=== PATIENT | male | born 1970 | race Caucasian/White ===

== ENCOUNTER 2018-12-09 06:58 | Inpatient (IN) ==
--- NOTE | 2018-10-24 12:12 | Anesthesiology Consultation ---
Date of Service October 24, 2018 Assessment & Plan (1) Encounter for pre-operative examination: Plan: EKG was reviewed by PCP. "Nothing further needed at this time." Chart Review Chart Review: Acceptable Risk for Surgery and Patient seen in Pre Admission Testing Teaching & Discussion Instructed NPO after midnight before surgery, except medications with 15 cc of water. Medication instructions provided according to the PAT guidelines. History Surgery Operation Date: 12/09/18 07:00 Proposed Procedures p Left Total Knee Arthroplasty - Eyal Mg MD Height/Weight Height: 6 ft 4 in Weight: 196 kg Allergies Allergy/AdvReac Type Severity Reaction Status Date / Time lisinopril Allergy Mild lip swelled Verified 10/24/18 10:50 Penicillins Allergy Unknown unsure as Verified 10/24/18 10:50 a child Medications Home Medications Medication Instructions Recorded Confirmed Last Taken albuterol sulfate 2.5 mg INHALATION QID PRN 10/24/18 10/24/18 Unknown albuterol sulfate [Ventolin HFA] 2 puff INHALATION QID PRN 10/24/18 10/24/18 Unknown apixaban [Eliquis] 5 mg PO BID 10/24/18 10/24/18 Unknown atorvastatin 40 mg PO QAM 10/24/18 10/24/18 Unknown duloxetine 30 mg PO HS 10/24/18 10/24/18 Unknown fluticasone [Flonase Allergy 2 spray INTRANASAL DAILY 10/24/18 10/24/18 Unknown Relief] fluticasone-vilanterol [Breo 1 inh INHALATION QAM 10/24/18 10/24/18 Unknown Ellipta] furosemide 20 mg PO QAM 10/24/18 10/24/18 Unknown hydrochlorothiazide 25 mg PO BID 10/24/18 10/24/18 Unknown hydrocodone-acetaminophen 1 tab PO Q6H PRN 10/24/18 10/24/18 Unknown ipratropium-albuterol 3 ml INHALATION QID PRN 10/24/18 10/24/18 Unknown levothyroxine 200 mcg PO QAM 10/24/18 10/24/18 Unknown metoprolol succinate 100 mg PO QAM 10/24/18 10/24/18 Unknown montelukast [Singulair] 10 mg PO QAM 10/24/18 10/24/18 Unknown potassium chloride 20 meq PO TID 10/24/18 10/24/18 Unknown ranitidine HCl 150 mg PO BID 10/24/18 10/24/18 Unknown Past Medical History Medical History Asthma Daily Breo, using albuterol rescue ~ once/wk GERD (gastroesophageal reflux disease) Hx of stroke without residual deficits 2016 - was treated at [facility] and then transferred to [facility]. no residual deficits aside from some word searching Hyperlipidemia Hypertension Hypothyroidism had iodine radiation treatment Osteoarthritis PONV (postoperative nausea and vomiting) Sleep apnea cpap Past Surgical History Surgical History History of arthroscopy R/L knee x 2 History of arthroscopy of shoulder left History of back surgery fracture back and has cage and hardware History of carpal tunnel surgery both hands and left elbow release of nerve History of endoscopic sinus surgery History of loop recorder placed 07/23/17 after CVA loooking for arrhythmia , [employer] History of tonsillectomy Past Anesthesia History No Hx of Anesthesia Complications (other than PONV, relieved with Zofran) and No Family Hx of Anesthesia Complications History of PONV Yes Motion Sickness Screening History of Motion Sickness: No Social History Smoking Status: Never smoker Do You Dip or Chew Tobacco: No Hx Alcohol Use: No Hx Substance Use: No substance use type: does not use Exercise / Class Metabolic Activity III < 4 Walking/Shop/Light housework (+SOB, no CP with stairs 2/2 knee pain/ deconditioning) Review of Systems Pt denies any recent chest pain, shortness of breath, palpitations, cough, fever or URI. Physical Exam Vital Signs BP: 153/97 (pt to f/u with PCP) P: 75bpm SPO2: 97% RA T: 98.1 F R: 18 ENMT Mouth: no dental restorations, no chipped teeth and no loose teeth Thyromental Distance: > or= 3.5 Finger Breadths (4) Mallampati Class: II Neck + short neck, + thick neck and + facial hair (short ); neck extension not limited Respiratory normal respiratory effort Auscultation: + crackles (soft end expiratory in lung bases B/L) Cardiovascular Rate/Rhythm: regular rate and regular rhythm Heart Sounds: no murmur Vessels: no carotid bruit Testing Electrocardiogram Date: 10/24/18 Findings: + NSR @ (63) SR with 1st degree AV block. Inferior infarct, age undetermined. Chest X-Ray Date: 10/24/18 Findings: + NAD Echocardiogram Date: 07/23/17 EF: 45-50% Normal left ventricular size, overall borderline low left ventricular ejection fraction. There is no left atrial appendage mass or thrombus. The right ventricular systolic function is qualitatively normal. Mild MR and mild TR. Laboratory Results 10/24/18 12:32 10/24/18 12:32 Blood Type O Negative 10/24/18 12:32 Antibody Screen NEGATIVE 10/24/18 12:32 PT 10.0 Seconds (9.0-12.0) 10/24/18 12:32 INR 1.0 (0.9-1.1) 10/24/18 12:32 APTT 32.4 Seconds (21.0-31.0) H 10/24/18 12:32
--- NOTE | 2018-10-24 12:27 | PAT Medication Instructions ---
Medication Instructions Date of Service October 24, 2018 Home Medications albuterol sulfate 2.5 mg INHALATION QID PRN apixaban [Eliquis] 5 mg PO BID atorvastatin 40 mg PO QAM duloxetine 30 mg PO HS fluticasone [Flonase Allergy 2 spray INTRANASAL DAILY fluticasone-vilanterol [Breo Ellipta] 1 inh INHALATION QAM furosemide 20 mg PO QAM hydrochlorothiazide 25 mg PO BID hydrocodone-acetaminophen 1 tab PO Q6H PRN ipratropium-albuterol 3 ml INHALATION QID PRN levothyroxine 200 mcg PO QAM metoprolol succinate 100 mg PO QAM montelukast [Singulair] 10 mg PO QAM potassium chloride 20 meq PO TID ranitidine HCl 150 mg PO BID ASK your prescriber and surgeon apixaban [Eliquis] 5 mg PO BID *MUST BE HELD AT LEAST 72 HOURS PRIOR TO SURGERY FOR SPINAL ANESTHESIA* DO NOT take the morning of surgery furosemide 20 mg PO QAM hydrochlorothiazide 25 mg PO BID montelukast [Singulair] 10 mg PO QAM potassium chloride 20 meq PO TID Take morning of surgery With a small sip of water, OTHERWISE NOTHING TO EAT OR DRINK AFTER MIDNIGHT: albuterol sulfate 2.5 mg INHALATION QID PRN (if needed, and bring with you to the hospital) atorvastatin 40 mg PO QAM fluticasone [Flonase Allergy] 2 spray INTRANASAL DAILY fluticasone-vilanterol [Breo Ellipta] 1 inh INHALATION QAM hydrocodone-acetaminophen 1 tab PO Q6H PRN (if needed) ipratropium-albuterol 3 ml INHALATION QID PRN (if needed) levothyroxine 200 mcg PO QAM metoprolol succinate 100 mg PO QAM ranitidine HCl 150 mg PO BID Take evening before surgery albuterol sulfate 2.5 mg INHALATION QID PRN (if needed) duloxetine 30 mg PO HS hydrochlorothiazide 25 mg PO BID hydrocodone-acetaminophen 1 tab PO Q6H PRN (if needed) ipratropium-albuterol 3 ml INHALATION QID PRN (if needed) potassium chloride 20 meq PO TID ranitidine HCl 150 mg PO BID Other Notes If you have any questions please call us at [phone] or [phone] or [phone] or [phone]
--- NOTE | 2018-10-24 12:51 | XRay Report ---
XR chest Pre-admission PA/Lat CLINICAL HISTORY: 48 years-old Male presenting with preoperative evaluation. TECHNIQUE: PA and lateral views of the chest were obtained. COMPARISON: None. FINDINGS: Cardiomediastinal silhouette normal. shroudman projects over the left heart. Lungs and pleural s paces clear. Osseous structures normal. Upper abdomen normal. IMPRESSION: 1. No acute cardiopulmonary disease. Electronically signed by: Kamron Hogue M.D. 10/24/2018 12:50 PM
[2018-10-24 14:13] LABS: Basophils # (auto) 0.07 K/uL (0-0.2); Basophils % (auto) 1.1 %; Eosinophils # (auto) 0.57 K/uL (0-0.5); Eosinophils % (auto) 8.9 %; Hematocrit (blood only) 41.9 % (42-52); Hemoglobin 13.6 g/dL (14.0-18.0); Immature Granulocytes # (auto) 0.02 K/uL (0.00-0.02); Immature Granulocytes % (auto) 0.3 %; Lymphocytes # (auto) 0.84 K/uL (1.2-3.4); Lymphocytes % (auto) 13.1 %; Mean Corpuscular Hgb Conc 32.5 g/dL (32-36); Mean Corpuscular Volume 91.1 fL (80-100); Mean Platelet Volume 11.2 fL (7.4-10.4); Monocytes # (auto) 0.84 K/uL (0.11-0.59); Monocytes % (auto) 13.1 %; Neutrophils # (auto) 4.08 K/uL (1.4-6.5); Neutrophils % (auto) 63.5 %; Platelet Count 172 K/uL (130-400); RDW Coefficient of Variation 14.3 % (11.5-14.5); RDW Standard Deviation 47.5 fL (36.4-46.3); White Blood Count 6.42 K/uL (4.8-10.8)
[2018-10-24 14:28] LABS: Partial Thromboplastin Ratio 1.2; Partial Thromboplastin Time 32.4 Seconds (21.0-31.0)
[2018-10-24 14:34] LABS: BUN Creatinine Ratio 12.9 (10-20); Calcium 9.3 mg/dl (8.5-10.1); Est GFR (African American) 65.5; Est GFR (Non-African American) 56.5; Potassium 3.7 mmol/L (3.5-5.1)
--- NOTE | 2018-12-04 08:41 | History and Physical Report ---
DATE OF ADMISSION: 12/09/2018 CHIEF COMPLAINT: Bilateral knee pain, left side greater than right. HISTORY OF PRESENT ILLNESS: The patient is a 48-year-old very large gentleman referred to me by my partner Dr. Ellis for a surgical treatment of his knees. He has a long history of bilateral knee pain and discomfort, describes it has just gotten worse over time. He has been through extensive conservative treatment, most specifically oral medicines and injections. The injections helped, but only for a very short period of time. He has become more disabled by his knee pain. He has got pain all the time. He has trouble walking more than 2 blocks. He avoids activities due to his knee pain. 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 The patient has had both of his knees scoped in the past which provided some temporary relief. He also cannot take NSAIDs now due to his Eliquis use. PAST MEDICAL HISTORY: 1. Hypertension. 2. Sleep apnea, on CPAP machine. 3. History of mini stroke, on Eliquis. 4. Gastroesophageal reflux disease. 5. Morbid obesity with a BMI of 52.6. PAST SURGICAL HISTORY: Previous surgeries include: 1. Bilateral knee scopes. 2. Sinus surgery. 3. Shoulder surgery. 4. Carpal tunnel release. 5. Tonsillectomy. ALLERGIES: 1. PENICILLIN. REACTIONS UNKNOWN. 2. LISINOPRIL, WHICH CAUSES ANGIOEDEMA. CURRENT MEDICINES: Include: 1. Eliquis for mini strokes without sequelae. 2. Hydrocodone for pain. 3. Levoxyl 200 mcg a day. 4. Potassium chloride 10 mEq twice a day. 5. Atorvastatin 40 mg a day. 6. Ranitidine 150 mg a day. 7. Singulair once a day. 8. Advair 2 puffs twice a day. 9. Ventolin inhaler 2 puffs every 4-6 hours. 10. Albuterol nebulizer as needed. 11. Eliquis 5 mg twice a day. 12. Metoprolol ER 100 mg once a day. 13. Cyclobenzaprine 5 mg 2 tablets at bedtime for muscle spasm. 14. Hydrochlorothiazide 12.5 mg 1-2 tablets as needed for swelling. 15. Furosemide 20 mg a day. 16. DuoNeb inhaler as needed. 17. Flonase allergy relief. SOCIAL HISTORY: A 48-year-old gentleman. Works as a paid EMT. Does not smoke. FAMILY HISTORY: Significant for diabetes and cerebrovascular disease and heart disease. REVIEW OF SYSTEMS: Significant for mini strokes without sequelae. He is on Eliquis. No history of DVT or PE. No known bleeding problems. OBJECTIVE GENERAL: Physical examination reveals a large statured middle-aged male. Looks to be in reasonably good health. HEENT: Benign. NECK: Supple, no lymphadenopathy. LUNGS: Clear to auscultation. HEART: Regular rate and rhythm. ABDOMEN: Soft, nontender, nondistended. EXTREMITIES: Grossly neurovascularly intact except as follows: Examination of both knees reveals the patient walks with a waddling gait. He limps a little bit more on the left side than the right. Examination of the left knee reveals varus alignment. Very large gentleman with a moderate soft tissue envelope. He has had chronic edema distally. No areas of open sores. His range of motion is 10 degrees short of full extension to 105 degrees of flexion. There is no instability. No pain with hip motion. Examination of the right knee reveals fairly neutral alignment to his knee. Large soft tissue envelope. Mild distal edema. Range of motion is 5-125. No instability. X-RAYS: X-rays of both knees reveal advanced bilateral knee DJD, left side quite a bit worse than the right. He has got complete loss of his medial joint space on the left side. He has got subchondral sclerosis. He is starting to wear down his medial tibial plateau. His right knee is a little bit more lateral compartment arthritis. ASSESSMENT: A 48-year-old gentleman with a history of some transient ischemic attacks in the past, on Eliquis, also history of bilateral knee scopes with morbid obesity, very large stature and advanced knee arthritis, left side worse than the right. He has failed conservative treatment. He would like to proceed with knee replacement. PLAN: We are going to proceed with a left knee replacement. I think it is only appropriate to do one knee at a time, he is a very large gentleman. The risks of cemented left knee replacement were explained to the patient including but not limited to DVT, PE, , infection, neurological injury, vascular injury, bleeding problem, pain, limited range of motion, stiffness, failure to relieve symptoms, incomplete relief of symptoms, need for further surgery in future, fracture, leg length inequality, nerve palsy, need for revision surgery. The patient understands and desires to proceed. Informed consent was obtained. He knows to stop his Eliquis 3 days preop. He will take the metoprolol the morning of surgery. We will likely use a stem in his tibia due to his large size and his deformity. We will likely put some antibiotics in the cement as well.
[~2018-12-09 06:58] MED LIST: ACETAMINOPHEN 500 MG TAB PO SCH; BUPIVACAINE 0.5 % 5 MG/1 ML PF 10ML VIAL ONE; BUPIVACAINE LIPOSOME/PF 266 MG, BUPIVACAINE/EPINEPHRINE 50 ML, SODIUM CHLORIDE 0.9% 30 ... INFIL SCH; CEFAZOLIN 3000MG 65 ML IV SCH; EPINEPHrine INJ 1 MG/ML AMP ONE; FAMOTIDINE 20 MG TAB PO SCH; GABAPENTIN 300 MG x 3 PO SCH; LR 500ML BOLUS, THEN 15ML/HR IV SCH; LR 60ML/HR IV SCH; METOCLOPRAMIDE HCL 10 MG TABLET PO SCH; ROPIVACAINE 0.5% 5 MG/ML 30 ML VIAL ONE; SCOPOLAMINE 1.5 MG TDSY TD SCH; TRANEXAMIC ACID 1,000 MG **IV Intra-op IV SCH
[2018-12-09] MEDS ORDERED: MIDAZOLAM HCL 1 MG/ML 2ML VIAL ONE ×3 (07:38→09:50)
[2018-12-09] MEDS ORDERED: BUPIVACAINE LIPOSOME 1.3% 266 MG/20 ML VIAL ONE (08:29)
[2018-12-09] MEDS ORDERED: BACITRACIN INJ 50,000 UNIT VIAL ONE (08:29)
[2018-12-09] MEDS ORDERED: BUPIVACAINE 0.25% 30 ML VIAL ONE (08:29)
[2018-12-09] MEDS ORDERED: SODIUM CHLORIDE 0.9% PF 50 ML VIAL ONE (08:29)
--- NOTE | 2018-12-09 08:29 | History & Physical Bridge Note ---
Date of Service December 09, 2018 History & Physical Bridge Note I have examined the patient, reviewed the History & Physical and in the interval since the performance of the History & Physical I have noted the following changes of clinical significance: no changes noted
[2018-12-09] MEDS ORDERED: VANCOMYCIN HCL 1000MG/20ML VIAL ONE (09:19)
[2018-12-09] MEDS ORDERED: PHENYLEPHRINE 100MCG/ML 5ML SYR ONE (09:33)
[2018-12-09] MEDS ORDERED: PROPOFOL IV EMULSION 10 MG/ML 20 ML VIAL IV ONE ×2 (09:33→10:30)
[2018-12-09] MEDS ORDERED: LIDOCAINE HCL 2% 2 ML VIAL/AMP(20MG/ML) INFIL ONE (09:33)
[2018-12-09] MEDS ORDERED: fentaNYL citrate 100 MCG/2 ML VIAL ONE (10:32)
[2018-12-09] MEDS ORDERED: ONDANSETRON INJ 2 MG/ML 2 ML VIAL ONE (10:47)
[2018-12-09] MEDS ORDERED: ePHEDrine sulfate 50 MG/ML AMP IV PRN (11:06)
[2018-12-09] MEDS ORDERED: ATROPINE SULFATE 0.1 MG/ML 10ML SYR IV PRN (11:06)
--- NOTE | 2018-12-09 11:09 | Post Operative Brief Note ---
Immediate Post Op Note v1 Date of Surgery December 09, 2018 Pre & Post Diagnosis Operation Date: 12/09/18 08:50 Pre-Op Diagnosis: Left Knee Advanced Degenerative Joint Disease Post-Op Diagnosis: Left Knee Advanced Degenerative Joint Disease Procedure Operation Date: 12/09/18 08:50 Actual Procedures p Left Total Knee Arthroplasty(Left) - Eyal Mg MD Surgeon Eyal Mg MD [facility] Josefa, PAC Estimated Blood Loss 50 Findings Consistent with Post-Op Diagnosis Fluids 1300 cc Specimens Left Knee Drains Mendez Catheter (A 16 Khmer mendez catheter was inserted by DUANE Casanova, without difficulty, clear yellow urine obtained, output to be monitored by Anesthesia.) Anesthesia Type Spinal MAC Complications none Disposition Accompanied Patient To Recovery: No Disposition: Recovery Room
--- NOTE | 2018-12-09 11:53 | XRay Report ---
XR knee LT 2V routine CLINICAL HISTORY: 48 years-old Male presenting with Surgical Post Op. TECHNIQUE: Frontal and crosstable lateral views of the left knee were obtained. COMPARISON: 10/24/2018. FINDINGS: There has been interval total left knee arthroplasty with patellar resurfacing. Expected intra-articu lar and soft tissue emphysema. Overlying skin yaakov. Surrounding soft tissue swelling. No periprost hetic fracture. No malalignment. IMPRESSION: Expected postsurgical appearance status post total left knee arthroplasty with patellar resurfacing. Electronically signed by: Kamron Hogue M.D. 12/09/2018 11:51 AM
--- NOTE | 2018-12-09 11:55 | Anesthesiology Progress Note ---
Date of Service December 09, 2018 Anesthesia Post Procedure Vital Signs Vital Signs: Temp Pulse Pulse Resp BP Pulse Ox 12/09/18 11:54 36.9 C 63 21 164/88 H 95 12/09/18 11:45 36.7 C 66 19 155/84 H 95 12/09/18 11:35 72 19 146/83 H 94 12/09/18 11:25 67 19 158/82 H 94 12/09/18 11:15 36.3 C L 76 16 138/79 97 12/09/18 08:01 37 C 73 20 150/88 H 96 Pain Intensity Left Knee: Pain Intensity: 2 Notes Mental Status: alert / awake / arousable Patient Amnestic to Procedure: Yes Nausea / Vomiting: adequately controlled Pain: adequately controlled Airway Patency, RR, SpO2: stable & adequate BP & HR: stable & adequate Hydration State: stable & adequate Neuraxial Anesthesia: was administered and sensory block is resolving Anesthetic Complications: no major complications apparent
[2018-12-09] MEDS ORDERED: OXYCODONE HCL IR 5 MG TAB (IMMEDIATE RELEASE) PO PRN (12:42)
[2018-12-09] MEDS ORDERED: ALBUTEROL 0.083% NEBU SOLN 3 ML VIAL INH PRN (12:42)
[2018-12-09] MEDS ORDERED: MAGNESIUM HYDROXIDE SUSP 30 ML UDC PO PRN (12:42)
[2018-12-09] MEDS ORDERED: TAMSULOSIN HCL 0.4 MG CAP PO PRN (12:42)
[2018-12-09] MEDS ORDERED: HYDROmorphone INJ 0.5 MG/0.5 ML SYR IV PRN (12:42)
[2018-12-09] MEDS ORDERED: ALBUT/IPRATROP 3MG/0.5MG NEB 3 ML VIAL INH PRN (12:42)
[2018-12-09] MEDS ORDERED: ALBUTEROL HFA 8 GM INHALER INH PRN ×2 (12:42→20:18)
[2018-12-09] MEDS ORDERED: ONDANSETRON INJ 2 MG/ML 2 ML VIAL IV PRN (12:42)
[2018-12-09] MEDS ORDERED: ALUMINUM/MAGNESIUM SUSP 30 ML UDC PO PRN (12:42)
[2018-12-09] MEDS ORDERED: NALOXONE HCL 0.4 MG/1 ML VIAL/CARP IV PRN (12:42)
[2018-12-09] MEDS ORDERED: BISACODYL 10 MG SUPP PR PRN (12:42)
[2018-12-09] MEDS ORDERED: METOCLOPRAMIDE HCL INJ 5 MG/ML 2 ML VIAL IV PRN (12:42)
[2018-12-09] MEDS: ACETAMINOPHEN 500 MG TAB PO SCH ×2 (14:29→21:37)
[2018-12-09] MEDS: KETOROLAC 30 MG/ML VIAL IV SCH ×2 (14:29→21:38)
[2018-12-09] MEDS: CHECK SCOPOLAMINE PATCH PLACEMENT SCH (16:48)
[2018-12-09] MEDS: SODIUM CHLORIDE 0.9% 1000ML 1,000 ML IV SCH ×2 (16:51→23:49)
[2018-12-09] MEDS: CEFAZOLIN 2000MG 2,000 MG/15 ML SYR IV SCH ×2 (16:52→23:53)
[2018-12-09] MEDS: POTASSIUM CHLORIDE 20 MEQ TABCR PO SCH ×2 (16:53→21:37)
[2018-12-09] MEDS: hydroCHLOROthiazide 25 MG TAB PO SCH (16:53)
[2018-12-09] MEDS: ASCORBIC ACID 500 MG TAB PO SCH (16:53)
[2018-12-09] MEDS: FERROUS GLUCONATE 324 MG TAB PO SCH (16:54)
[2018-12-09] MEDS ORDERED: TRANEXAMIC ACID 1,000 MG in 0.9 % SODIUM CHLORIDE 100 ML IV SCH (17:00)
[2018-12-09] MEDS ORDERED: DULOXETINE HCL 30 MG CAP PO SCH (21:00)
[2018-12-09] MEDS ORDERED: SENNA 8.6 MG TAB PO SCH (21:00)
[2018-12-09] MEDS: DOCUSATE SODIUM 100 MG CAP PO SCH (21:37)
[2018-12-09] MEDS: TAPENTADOL HCL ER 50 MG TABCR PO SCH (21:43)
[2018-12-09] MEDS: BREO ELIPTA INH SCH (23:50)
--- NOTE | 2018-12-10 00:12 | Operative Report ---
DATE OF OPERATION: 12/09/2018 SURGEON: Eyal Mg MD ACID REMOVER: DUANE Nur. PREOPERATIVE DIAGNOSIS: Left knee degenerative joint disease. POSTOPERATIVE DIAGNOSIS: Same. PROCEDURE PERFORMED: Left cemented posterior stabilized total knee arthroplasty. COMPLICATIONS: None. ESTIMATED BLOOD LOSS: 50 mL. FLUID REPLACEMENT: 1300 mL crystalloid fluid replacement. ANESTHESIA: Spinal with adductor canal block. DRAINS: None. SPECIMENS: Left knee sent for pathology. TOURNIQUET TIME: 79 minutes at 350 mmHg. OPERATIVE INDICATIONS: The patient is a 48-year-old gentleman who has had a long history of bilateral knee pain and discomfort. He has been through extensive conservative treatment in the past. He has had both of his knees scoped in the past. X-ray showed advanced bilateral knee DJD. It was affecting his quality of life and he elected to proceed with surgical treatment. OPERATIVE FINDINGS: Operative findings were advanced left knee DJD. He had extensive grade 4 changes in the medial and patellofemoral compartments. He had a varus deformity to his knee. He had a large knee joint effusion. The patient is a very large gentleman with a BMI of 52 and a weight of 196 kilograms. OPERATIVE IMPLANTS: Operative implants consisted of: 1. A Biomet Vanguard size 80 left posterior stabilized femoral component. 2. A Biomet size 83 tibial tray with a 16 x 80 mm stem with a 2.5 mm offset and a large cruciate wing. 3. A 12 mm posterior stabilized polyethylene insert. 4. A 34 x 8.5 all poly patella. OPERATIVE PROCEDURE: The patient was taken to the operating room, identified and placed on the operative table in supine position. All contact areas were appropriately padded. IV antibiotics were provided by anesthesia team. A spinal anesthetic and adductor canal block were provided in the holding area. Gama catheter was placed in sterile fashion. A left thigh tourniquet was then placed and the left lower extremity was then prepped and draped in the usual sterile fashion. The left leg was elevated and exsanguinated with Esmarch and tourniquet was placed at 350 mmHg. An anterior approach to the left knee was then performed through a longitudinal incision centered over the patella. Sharp dissection was carried through the subcutaneous tissues down to the extensor mechanism. A medial parapatellar arthrotomy incision was made. Some subperiosteal dissection was carried out medially. The fat pad was resected from beneath the patellar tendon. The lateral patellofemoral ligament was released. The patella was everted and knee was flexed. The osteophytes were taken off the distal femur. The ACL and PCL were then released from the distal femur and the tibia subluxated anteriorly. The intercondylar eminence was then removed with the use of a saw. I then entered the tibial canal. I reamed up to a size 16. Intramedullary toribio was used to cut the proximal tibia to take about 2 mm of bone from the most deficient aspect of the medial tibial plateau. The tibia was then sized to a size 83. I then prepared the tibia for a 2 mm offset stem with a size 16 x 80 stem. The large cruciate wing was used and the trial tray was assembled in place. Attention was then drawn to the femur. The distal femur was entered with a sharp drill bit. Intramedullary canal was suctioned. A left 5-degree valgus cutting guide was placed. The distal femoral cutting block was pinned in place. Distal femoral cut was made to take an additional 3 mm of bone off the distal femur. The femur was then sized to a size 80. We downsized this slightly. The AP cutting block was pinned parallel to the epicondylar axis, which was 4 degrees of external rotation. The anterior cut, anterior chamfer, posterior cut, posterior chamfer cuts were made. Box cutting guide was placed and adjusted slightly lateral and the box cut was made. The knee was flexed. The remnants of the medial and lateral menisci were excised. The osteophytes were taken off the posterior aspect of the femur. A trial femoral component was placed. I then trialed the knee and the 12 mm insert fit most appropriately. Attention was then drawn to the patella. The patella was cleaned of all soft tissues. Patellar thickness measured 25 mm in thickness and was cut down to 15. We did leave this a little thick due to his large size. The femur was sized to a size 34. The lug holes were drilled for a 34 patella. Lateral osteophyte was removed. Patellar button was placed. Knee was taken through range of motion and patella tracked nicely with no thumbs test. Attention was then drawn toward placement of permanent components. All trial components were removed. A bone plug was placed in the distal femur to limit blood loss. A double batch of Palacos G cement was mixed with an additional gram of vancomycin. A size 80 left posterior stabilized femoral component, size 83 tibial tray with a stem, and a large cruciate wing and a 12-mm posterior stabilized polyethylene insert, and a 34 x 8.5 all poly patella were then cemented in place. Knee was brought out into full extension until cement hardened. A final cement check was then performed. Pericapsular tissues were injected with a total 100 mL of a combination of 20 mL of Exparel, 30 mL of normal saline, 50 mL of 0.25% Marcaine with epinephrine. The patient did receive 1 gram of tranexamic acid. The tourniquet was then let down for a tourniquet time of 79 minutes. Hemostasis was assured using electrocautery. The extensor mechanism was then closed with a combination of #1 PDS suture and #1 Vicryl suture in [id number] fashion. Extensor mechanism was checked and found to be intact. The subcutaneous tissues were then closed with #2 Dexon suture in a buried interrupted fashion. Skin was closed with skin yaakov. Leg was then cleaned, dried and sterile dressing of Xeroform, 4 x 4's, sterile cast padding, and Ashutosh bandage were applied. The patient was then transferred to the recovery room in stable condition. The patient tolerated the procedure without complications. All needle and sponge counts were correct at the end of the operation. I attest to the content of the Intraoperative Record and any orders documented therein. Any exception s are noted below.
[2018-12-10] MEDS: CHECK SCOPOLAMINE PATCH PLACEMENT SCH (00:27)
[2018-12-10] MEDS: KETOROLAC 30 MG/ML VIAL IV SCH ×2 (02:17→09:20)
[2018-12-10 06:10] LABS: Hematocrit (blood only) 34.6 % (42-52); Hemoglobin 11.3 g/dL (14.0-18.0); Mean Corpuscular Hgb Conc 32.7 g/dL (32-36); Mean Corpuscular Volume 91.1 fL (80-100); Mean Platelet Volume 10.5 fL (7.4-10.4); Platelet Count 109 K/uL (130-400); RDW Coefficient of Variation 13.8 % (11.5-14.5); White Blood Count 6.43 K/uL (4.8-10.8)
[2018-12-10] MEDS: SODIUM CHLORIDE 0.9% 1000ML 1,000 ML IV SCH (06:23)
[2018-12-10] MEDS: ACETAMINOPHEN 500 MG TAB PO SCH (06:26)
[2018-12-10] MEDS ORDERED: LEVOTHYROXINE SODIUM 100 MCG TABLET PO SCH (06:30)
[2018-12-10] MEDS ORDERED: LEVOTHYROXINE SODIUM 125 MCG TABLET PO SCH (06:30)
[2018-12-10 06:35] LABS: BUN Creatinine Ratio 17.3 (10-20); Calcium 7.7 mg/dl (8.5-10.1); Creatinine Clr Calc Pharmacy 99.9 ml/min; Est GFR (African American) 55.6; Potassium 3.6 mmol/L (3.5-5.1)
[2018-12-10] MEDS ORDERED: FLUTICASONE PROPIONATE NA SPR 16 GM BTL SCH (09:00)
[2018-12-10] MEDS ORDERED: MULTIVITAMIN TAB PO SCH (09:00)
[2018-12-10] MEDS ORDERED: FUROSEMIDE 20 MG TAB PO SCH (09:00)
[2018-12-10] MEDS ORDERED: ATORVASTATIN 40 MG TAB PO SCH (09:00)
[2018-12-10] MEDS ORDERED: METOPROLOL SUCC 50MG EXT REL TAB PO SCH (09:00)
[2018-12-10] MEDS ORDERED: MONTELUKAST SODIUM 10 MG TABLET PO SCH (09:00)
[2018-12-10] MEDS: FERROUS GLUCONATE 324 MG TAB PO SCH (09:06)
[2018-12-10] MEDS: BREO ELIPTA INH SCH (09:17)
[2018-12-10] MEDS: DOCUSATE SODIUM 100 MG CAP PO SCH (09:18)
[2018-12-10] MEDS: POTASSIUM CHLORIDE 20 MEQ TABCR PO SCH (09:18)
[2018-12-10] MEDS: hydroCHLOROthiazide 25 MG TAB PO SCH (09:19)
[2018-12-10] MEDS: ASCORBIC ACID 500 MG TAB PO SCH (09:19)
[2018-12-10] MEDS: TAPENTADOL HCL ER 50 MG TABCR PO SCH (09:27)
--- NOTE | 2018-12-10 10:45 | Progress Note ---
DATE: 12/10/2018 ORTHOPEDIC PROGRESS NOTE SUBJECTIVE: The patient is a 48-year-old male postop day #1 status post left total knee arthroplasty, doing well. He is sitting in his chair next to his bed in his room with his present. He has had a good night and good appetite this morning; thereafter, a very good start. OBJECTIVE: VITAL SIGNS: His temperature is 36.6, blood pressure 114/76. Other vitals are stable. H and H are 11.3 and 34.6. GENERAL APPEARANCE: At this point, he is alert and oriented, pleasant. He is sitting in his chair. EXTREMITIES: His dressing is intact. His knee is bent to about 90 degrees. No calf discomfort. Neurovascular status appears to be intact. IMAGING: X-rays reviewed from postoperatively yesterday show a well-placed left total knee arthroplasty with a long stem on the tibial tray. ASSESSMENT: A 48-year-old male, postoperative day #1 left total knee arthroplasty, doing extremely well and anxious to go home to avoid the snowstorm tomorrow in our community. PLAN: 1. We will continue with DVT prophylaxis including thigh-high CAROLEE stockings, aspirin twice a day. 2. He will weightbear as tolerated per total knee protocol. 3. Pain control with post-discharge pain medications. 4. He will follow back up in the office in 10-14 days to remove his skin yaakov. He is set up for home health also.
[2018-12-10] MEDS ORDERED: APIXABAN 2.5 MG TAB PO SCH (11:11)
--- NOTE | 2018-12-10 11:32 | Anesthesiology Progress Note ---
Date of Service December 10, 2018 Anesthesia Post Procedure Vital Signs Vital Signs: Temp Pulse Pulse Resp BP BP Pulse Ox 12/10/18 08:41 36.6 C 73 18 114/76 92 12/10/18 03:12 36.7 C 68 16 113/71 95 12/09/18 23:06 37.2 C 69 17 118/72 96 12/09/18 19:04 36.7 C 65 16 133/72 99 12/09/18 15:23 36.4 C L 59 L 18 147/71 H 94 12/09/18 14:35 60 14 169/74 H 96 12/09/18 13:33 66 18 133/78 97 12/09/18 12:57 69 20 156/92 H 96 12/09/18 12:30 36.7 C 72 19 167/75 H 94 12/09/18 12:08 36.9 C 63 20 146/79 H 94 12/09/18 11:54 36.9 C 63 21 164/88 H 95 12/09/18 11:45 36.7 C 66 19 155/84 H 95 12/09/18 11:35 72 19 146/83 H 94 Pain Intensity Left Knee: Pain Intensity: 2 Notes Mental Status: alert / awake / arousable and participated in evaluation Patient Amnestic to Procedure: Yes Nausea / Vomiting: adequately controlled Pain: adequately controlled Airway Patency, RR, SpO2: stable & adequate BP & HR: stable & adequate Hydration State: stable & adequate Anesthetic Complications: no major complications apparent
--- NOTE | 2018-12-14 06:47 | Discharge Summary ---
Date of Service December 20, 2018 Discharge Data Consultations 12/09/18 12:42 Consult Case Management - Discharge Planning Routine Procedures Performed Operation Date: 12/09/18 08:50 Actual Procedures p Left Total Knee Arthroplasty(Left) - Eyal Mg MD
--- NOTE | 2018-12-18 22:39 | Discharge Summary ---
ADMITTING PHYSICIAN AND SURGEON: Eyal Mg MD ADMITTING DIAGNOSIS: Left knee degenerative joint disease. SURGERY PERFORMED: Left total knee arthroplasty. SECONDARY DIAGNOSES: Hypertension, sleep apnea, history of mini stroke, gastroesophageal reflux disease and morbid obesity. CONSULTS: None obtained. HISTORY AND PHYSICAL EXAMINATION: Well documented in the patient's chart. HOSPITAL COURSE: The patient was admitted on 12/09/2018, underwent total knee arthroplasty, tolerated the procedure well with no complications. He was transferred to the PACU postoperatively and later to the Orthopedic for further care. He was given Ancef for antibiotic prophylaxis, CAROLEE stockings and sequential compression devices and his home Eliquis for deep venous thrombosis prophylaxis. Hemoglobin, hematocrit and vital signs were monitored during his hospital stay and remained stable, did not require any blood transfusions. There were no complications. By postoperative day 1, he was tolerating regular diet, pain was controlled with oral pain medicine. He was participating in physical therapy. On postoperative day 1, he was discharged home and set up with home health services. He was given printed discharge instructions including new prescriptions for extra strength Tylenol, iron supplement and oxycodone. Continue his home medicines with the exception of hydrocodone/acetaminophen, which he was told to stop. Continue physical therapy, weightbearing as tolerated, CAROLEE stockings and follow up approximately 2 weeks postoperatively or sooner if any problems or concerns.
== END 2018-12-10 13:00 | disposition home health service (06) | DRG 470 ==
LOC: ASU 06:58 → 3E 12:41

== ENCOUNTER 2019-11-28 09:46 | Observation (INO) ==
--- NOTE | 2019-11-15 13:27 | PAT Medication Instructions ---
Medication Instructions Date of Service November 15, 2019 Home Medications Eliquis 5 mg PO BID albuterol sulfate 2.5 mg INHALATION QID PRN albuterol sulfate [Ventolin HFA] 2 puff INHALATION QID PRN atorvastatin 40 mg PO QAM duloxetine 30 mg PO HS fluticasone propionate [Flonase Allergy Relief] 2 spray INTRANASAL UD PRN levothyroxine 212.5 mcg PO QAM metoprolol succinate 100 mg PO QAM montelukast [Singulair] 10 mg PO QAM potassium chloride 20 meq PO QID amlodipine 2.5 mg PO QAM omeprazole 20 mg PO QAM ASK your prescriber and surgeon Eliquis 5 mg PO BID (in order for spinal anesthesia, Eliquis needs to be stopped 3 days/72 hours before surgery. Please check if okay with doctor that prescribes this to you) DO NOT take the morning of surgery montelukast [Singulair] 10 mg PO QAM potassium chloride 20 meq PO QID Take morning of surgery With a small sip of water, OTHERWISE NOTHING TO EAT OR DRINK AFTER MIDNIGHT: albuterol sulfate 2.5 mg INHALATION QID PRN (if needed) albuterol sulfate [Ventolin HFA] 2 puff INHALATION QID PRN (if needed) atorvastatin 40 mg PO QAM fluticasone propionate [Flonase Allergy Relief] 2 spray INTRANASAL UD PRN (if needed) levothyroxine 212.5 mcg PO QAM metoprolol succinate 100 mg PO QAM amlodipine 2.5 mg PO QAM omeprazole 20 mg PO QAM Take evening before surgery albuterol sulfate 2.5 mg INHALATION QID PRN (if needed) albuterol sulfate [Ventolin HFA] 2 puff INHALATION QID PRN (if needed) duloxetine 30 mg PO HS fluticasone propionate [Flonase Allergy Relief] 2 spray INTRANASAL UD PRN (if needed) potassium chloride 20 meq PO QID Other Notes If you have any questions please call us at [phone] or [phone] or [phone] or [phone]
--- NOTE | 2019-11-16 11:53 | Anesthesiology Consultation ---
Date of Service November 16, 2019 Assessment & Plan (1) Encounter for pre-operative examination: Chart Review Chart Review: Acceptable Risk for Surgery and Patient seen in Pre Admission Testing Left TKA done 12/09/18= done under spinal anesthesia. Three attempts - done between L3-4 Teaching & Discussion Pre-Anesthesia Teaching/Discussion Notes: Instructed NPO after midnight before surgery,except medications with 15 cc of water. Medication instructions provided according to the PAT guidelines. History Surgery Operation Date: 12/15/19 07:00 Proposed Procedures p Right Total Knee Arthroplasty - Eyal Mg MD Height/Weight Height: 6 ft 4 in Weight: 199.3 kg Allergies Allergy/AdvReac Type Severity Reaction Status Date / Time lisinopril Allergy Unknown lip swelled Verified 11/16/19 10:04 Penicillins Allergy Unknown unsure as Verified 11/16/19 10:04 a child Medications Home Medications Medication Instructions Recorded Confirmed Last Taken Eliquis 5 mg PO BID 10/24/18 11/16/19 12/05/18 15:00 albuterol sulfate 2.5 mg INHALATION QID PRN 10/24/18 11/16/19 Unknown albuterol sulfate [Ventolin HFA] 2 puff INHALATION QID PRN 10/24/18 11/16/19 Unknown atorvastatin 40 mg PO QAM 10/24/18 11/16/19 12/08/18 08:00 duloxetine 30 mg PO HS 10/24/18 11/16/19 12/08/18 21:00 fluticasone propionate [Flonase 2 spray INTRANASAL UD PRN 10/24/18 11/16/19 Unknown Allergy Relief] levothyroxine 212.5 mcg PO QAM 10/24/18 11/16/19 12/09/18 05:30 metoprolol succinate 100 mg PO QAM 10/24/18 11/16/19 12/09/18 06:00 montelukast [Singulair] 10 mg PO QAM 10/24/18 11/16/19 12/08/18 08:00 potassium chloride 20 meq PO QID 10/24/18 11/16/19 12/08/18 21:00 amlodipine 2.5 mg PO QAM 11/10/19 11/16/19 Unknown omeprazole 20 mg PO QAM 01/31/20 02/06/20 Unknown Past Medical History Medical History (Updated 11/16/19 @ 15:41 by Mckenzie Ocampo PA-C) Asthma Stable and controlled - occ wheezing with weather changes CKD (chronic kidney disease) Stable - was taken off Lasix and HCTZ - slowly improving GERD (gastroesophageal reflux disease) Well controlled and stable with OTC Omeprazole Hx of stroke without residual deficits 2015 - denies residual effects- no longer needs to follow with neuro- follows only with PCP Hyperlipidemia Hypertension Hypothyroidism s/p iodine radiation treatment secondary to hyperthyroidism Leg edema Mild/stable since d/c of diuretics Morbid obesity Osteoarthritis Right knee DJD Sleep apnea no CPAP (non-compliant, "cannot tolerate") Exercise / Class Metabolic Activity II 4-5 Yardwork/Stairs/Walk up hill (no chest pain or SOB with one flight of stairs- goes slow ) Past Surgical History Surgical History Family history of reaction to anesthesia Mother/father "slow to wake"- no prolonged intubation or ICU stay History of arthroscopy R/L knee x 2 History of arthroscopy of shoulder left History of back surgery fracture back and has cage and hardware History of carpal tunnel surgery both hands and left elbow release of nerve History of endoscopic sinus surgery History of left knee replacement Left TKA: 12/09/18: SAB x 3 attempts + PNB at [facility] History of loop recorder placed 07/23/17 after CVA loooking for arrhythmia , Ceregen[employer]- still in place History of tonsillectomy PONV (postoperative nausea and vomiting) Past Anesthesia History No issues with anesthesia with exception to PONV Family hx of slow to wake- no prolonged intubation or ICU stay- just groggy afterwards (mother and father) History of PONV History of PONV and Hx of Motion Sickness Social History Smoking Status: Never smoker Do You Dip or Chew Tobacco: No Hx Alcohol Use: No Hx Substance Use: No substance use type: does not use Review of Systems Mild cough and wheezing with asthma aggrevation. Reflux - well controlled and stable CVA- 2017- no current issues DEBORA - no treated Patient denies chest pain, shortness of breath, dyspnea on exertion, pa lpitations. No hx of seizures, ID. No hx of blood clots or blood transfusions No recent steroid use Physical Exam Vital Signs VITALS BP 140/69 P 62 bpm TEMP 97.7 SP02 95% RESP 16 Constitutional no acute distress ENMT Mouth: no TMJ clicking, no chipped teeth and no loose teeth Thyromental Distance: > or= 3.5 Finger Breadths (4.0) Mallampati Class: II Missing molar bottom right and top left Neck + short neck and + thick neck; neck extension not limited Respiratory normal respiratory effort; no respiratory distress Auscultation: lungs clear to auscultation bilaterally and + diminished lung sounds (mild- throughout ); no wheezes Cardiovascular Rate/Rhythm: regular rate and regular rhythm Heart Sounds: no murmur Vessels: no carotid bruit Extremities: + edema (1+ (mild)) Musculoskeletal Spine: no pain with cervical ROM Neurologic moves all extremities Psychiatric Orientation: alert Testing Laboratory Results 11/16/19 11:58 11/16/19 11:58 PT 10.3 Seconds (9.0-12.0) 11/16/19 11:58 INR 1.0 (0.9-1.1) 11/16/19 11:58 APTT 33.6 Seconds (21.0-31.0) H 11/16/19 11:58 Blood Type O Negative 11/16/19 11:58 Antibody Screen NEGATIVE 11/16/19 11:58 Electrocardiogram Date: 11/16/19 Sinus rhythm with first-degree AV block at 64 bpm. When compared to EKG from 10/24/2018 T wave inversion no longer evident in inferior leads. Chest X-Ray Date: 11/16/19 Findings: + NAD Loop recorder device projects over left chest. Echocardiogram Date: 07/23/17 EF: 45-50% Normal left ventricular size, overall borderline low left ventricular ejection fraction. There is no left atrial appendage mass or thrombus. The right ventricular systolic function is qualitatively normal. Mild MR and mild TR.
[2019-11-16 12:38] LABS: Basophils # (auto) 0.05 K/uL (0-0.2); Basophils % (auto) 0.8 %; Eosinophils # (auto) 0.74 K/uL (0-0.5); Eosinophils % (auto) 12.5 %; Hematocrit (blood only) 38.8 % (42-52); Hemoglobin 12.9 g/dL (14.0-18.0); Immature Granulocytes # (auto) 0.01 K/uL (0.00-0.02); Immature Granulocytes % (auto) 0.2 %; Lymphocytes # (auto) 0.99 K/uL (1.2-3.4); Lymphocytes % (auto) 16.7 %; Mean Corpuscular Hemoglobin 29.7 pg (25-34); Mean Corpuscular Hgb Conc 33.2 g/dL (32-36); Mean Corpuscular Volume 89.4 fL (80-100); Mean Platelet Volume 10.2 fL (7.4-10.4); Monocytes # (auto) 0.47 K/uL (0.11-0.59); Monocytes % (auto) 7.9 %; Neutrophils # (auto) 3.67 K/uL (1.4-6.5); Neutrophils % (auto) 61.9 %; Platelet Count 165 K/uL (130-400); RDW Coefficient of Variation 13.7 % (11.5-14.5); Red Blood Count 4.34 M/uL (4.7-6.1); White Blood Count 5.93 K/uL (4.8-10.8)
[2019-11-16 12:47] LABS: Partial Thromboplastin Ratio 1.2; Partial Thromboplastin Time 33.6 Seconds (21.0-31.0); Prothrombin Time 10.3 Seconds (9.0-12.0)
[2019-11-16 12:52] LABS: BUN Creatinine Ratio 14.6 (10-20); C Reactive Protein 0.63 mg/dl (0-0.29); Calcium 8.9 mg/dl (8.5-10.1); Est GFR (African American) 67.9; Est GFR (Non-African American) 58.6; Potassium 4.1 mmol/L (3.5-5.1)
--- NOTE | 2019-11-16 13:15 | XRay Report ---
XR chest Pre-admission PA/Lat HISTORY: 49 years-old Male pat preoperative exam. No acute chest complaints COMPARISON: 10/24/2018 TECHNIQUE: PA and lateral views of the chest FINDINGS: Loop recorder device projects over the left chest. Cardiac mediastinal and hilar silhouettes are unch anged. No pneumothorax, pleural effusion, focal airspace consolidation or overt pulmonary edema. Dege nerative changes of the shoulders and spine. IMPRESSION: No acute process. ACT 112: Negative or not required by law. The above report was generated using voice recognition software. It may contain grammatical, syntax o r spelling errors. Electronically signed by: Dandre Beth M.D. 11/16/2019 1:14 PM
--- NOTE | 2019-11-16 14:36 | Electrocardiogram Report ---
Test Reason : Blood Pressure : / mmHG Vent. Rate : 064 BPM Atrial Rate : 064 BPM P-R Int : 210 ms QRS Dur : 098 ms QT Int : 412 ms P-R-T Axes : 049 044 041 degrees QTc Int : 425 ms Sinus rhythm with 1st degree A-V block Otherwise normal ECG When compared with ECG of 24-OCT-2018 12:28, T wave inversion no longer evident in Inferior leads Confirmed by Ovidio Grace ([id number]) on 11/16/2019 2:35:32 PM Referred By: Eyal Mg Confirmed By:Ovidio Grace
[~2019-11-28 09:46] MED LIST changes: -CEFAZOLIN 3000MG 65 ML IV SCH; +CEFAZOLIN 3000MG 72.5 ML IV SCH; -EPINEPHrine INJ 1 MG/ML AMP ONE; -GABAPENTIN 300 MG x 3 PO SCH; +GABAPENTIN 900 MG DOSE PO SCH; +LR 15ML/HR IV SCH; -LR 500ML BOLUS, THEN 15ML/HR IV SCH
--- NOTE | 2019-11-28 11:37 | History & Physical Bridge Note ---
Date of Service November 28, 2019 History & Physical Bridge Note I have examined the patient, reviewed the History & Physical and in the interval since the performance of the History & Physical I have noted the following changes of clinical significance: no changes noted
[2019-11-28] MEDS ORDERED: LIDOCAINE HCL 2% 2 ML VIAL/AMP(20MG/ML) INFIL ONE ×2 (12:21→14:37)
[2019-11-28] MEDS ORDERED: PHENYLEPHRINE HCL 10 MG/ML VIAL ONE (12:21)
[2019-11-28] MEDS ORDERED: fentaNYL citrate 100 MCG/2 ML VIAL ONE (12:21)
[2019-11-28] MEDS ORDERED: ePHEDrine sulfate 50 MG/ML AMP ONE (12:21)
[2019-11-28] MEDS ORDERED: PROPOFOL IV EMULSION 10 MG/ML 20 ML VIAL IV ONE ×2 (12:21→14:37)
[2019-11-28] MEDS ORDERED: MIDAZOLAM HCL 1 MG/ML 2ML VIAL ONE (12:22)
[2019-11-28] MEDS ORDERED: fentaNYL citrate 100 MCG/2 ML VIAL IV PRN (13:12)
[2019-11-28] MEDS ORDERED: ePHEDrine sulfate 50 MG/ML AMP IV PRN (13:12)
[2019-11-28] MEDS ORDERED: HYDROmorphone INJ 2 MG/ML SYR/VIAL IV PRN (13:12)
[2019-11-28] MEDS ORDERED: ATROPINE SULFATE 0.1 MG/ML 10ML SYR IV PRN (13:12)
[2019-11-28] MEDS ORDERED: KETAMINE HCL INJ 50 MG/ML 10 ML VIAL ONE (13:26)
[2019-11-28] MEDS ORDERED: BACITRACIN INJ 50,000 UNIT VIAL ONE (13:36)
[2019-11-28] MEDS ORDERED: SODIUM CHLORIDE 0.9% PF 50 ML VIAL ONE (13:36)
[2019-11-28] MEDS ORDERED: BUPIVACAINE/EPINEPHRINE 0.25% 1:200,000 30 ML VIAL ONE (13:36)
[2019-11-28] MEDS ORDERED: BUPIVACAINE LIPOSOME 1.3% 266 MG/20 ML VIAL ONE (13:36)
[2019-11-28] MEDS ORDERED: VANCOMYCIN HCL 1000MG/20ML VIAL ONE (13:38)
[2019-11-28] MEDS ORDERED: GLYCOPYRROLATE 0.2 MG/ML VIAL ONE (14:37)
[2019-11-28] MEDS ORDERED: ONDANSETRON INJ 2 MG/ML 2 ML VIAL ONE (14:37)
[2019-11-28] MEDS ORDERED: CHECK SCOPOLAMINE PATCH PLACEMENT SCH (16:00)
--- NOTE | 2019-11-28 16:25 | Post Operative Brief Note ---
PG Immediate Post Op with CF Date of Surgery November 28, 2019 Pre & Post Diagnosis Operation Date: 11/28/19 12:30 Pre-Op Diagnosis: RIGHT KNEE DEGENERATIVE JOINT DISEASE W/KNEE PAIN Post-Op Diagnosis: RIGHT KNEE DEGENERATIVE JOINT DISEASE W/KNEE PAIN I identified the patient and participated in the time-out.: Yes Procedure Operation Date: 11/28/19 12:30 Actual Procedures p Right Total Knee Arthroplasty(Right) - Eyal Mg MD Surgeon Eyal Mg MD Massage Operator Josefa, PAC Estimated Blood Loss 100 Findings Consistent with Post-Op Diagnosis Fluids 1300 cc Specimens Specimen Description: A: Right knee bone & tissue Drains Gama Catheter Anesthesia Type Spinal MAC Complications none Disposition Accompanied Patient To Recovery: No Disposition: Recovery Room
--- NOTE | 2019-11-28 16:48 | XRay Report ---
XR knee RT 1 or 2V routine CLINICAL HISTORY: 49 years-old Male presenting with Surgical Post Op. TECHNIQUE: Frontal and crosstable lateral views of the right knee were obtained. COMPARISON: 11/16/2019. FINDINGS: Postsurgical changes of total right knee arthroplasty with patellar resurfacing. There is an extended stem component in the tibia. Expected soft tissue and intra-articular emphysema. Overlying skin stap les in place. No malalignment. No periprosthetic fracture or unexpected periprosthetic lucency. IMPRESSION: Expected postsurgical appearance status post total right knee arthroplasty with patellar resurfacing. ACT 112: Negative or not required by law. Electronically signed by: Kamron Hogue M.D. 11/28/2019 4:47 PM
--- NOTE | 2019-11-28 16:51 | Anesthesiology Progress Note ---
Date of Service November 28, 2019 Anesthesia Post Procedure Vital Signs Vital Signs: Temp Pulse Resp BP BP Pulse Ox 11/28/19 16:40 71 22 144/92 H 96 11/28/19 16:31 36.7 C 66 20 138/88 100 11/28/19 10:28 36.7 C 62 20 133/94 99 Pain Intensity Right Knee: Pain Intensity: 0 Transfer of Care Handoff Completed per policy Notes Mental Status: alert / awake / arousable and participated in evaluation Nausea / Vomiting: adequately controlled Pain: adequately controlled Airway Patency, RR, SpO2: stable & adequate BP & HR: stable & adequate Hydration State: stable & adequate Neuraxial Anesthesia: was administered and sensory block is resolving Anesthetic Complications: no major complications apparent and Pt Satisfied with anesthetic care
[2019-11-28] MEDS ORDERED: bisacodyL 10 MG SUPP PR PRN (17:15)
[2019-11-28] MEDS ORDERED: HYDROmorphone INJ 0.5 MG/0.5 ML SYR IV PRN (17:15)
[2019-11-28] MEDS ORDERED: METOCLOPRAMIDE HCL INJ 5 MG/ML 2 ML VIAL IV PRN (17:15)
[2019-11-28] MEDS ORDERED: ONDANSETRON INJ 2 MG/ML 2 ML VIAL IV PRN (17:15)
[2019-11-28] MEDS ORDERED: FLUTICASONE PROPIONATE NA SPR 16 GM BTL NAE PRN (17:15)
[2019-11-28] MEDS ORDERED: ALBUTEROL HFA 8 GM INHALER INH PRN (17:15)
[2019-11-28] MEDS ORDERED: OXYCODONE HCL IR 5 MG TAB (IMMEDIATE RELEASE) PO PRN (17:15)
[2019-11-28] MEDS ORDERED: TAMSULOSIN HCL 0.4 MG CAP PO PRN (17:15)
[2019-11-28] MEDS ORDERED: NALOXONE HCL 0.4 MG/1 ML VIAL/CARP IV PRN (17:15)
[2019-11-28] MEDS ORDERED: MAGNESIUM HYDROXIDE SUSP 30 ML UDC PO PRN (17:15)
[2019-11-28] MEDS ORDERED: ALBUTEROL 0.5% NEB SOLN 2.5 MG/0.5 ML VIAL INH PRN (17:15)
[2019-11-28] MEDS ORDERED: ALUMINUM/MAGNESIUM SUSP 30 ML UDC PO PRN (17:15)
[2019-11-28] MEDS: CHECK SCOPOLAMINE PATCH PLACEMENT SCH (17:26)
[2019-11-28] MEDS ORDERED: SODIUM CHLORIDE 0.9% 1000ML 1,000 ML IV SCH (17:45)
[2019-11-28] MEDS: ASCORBIC ACID 500 MG TAB PO SCH (18:45)
[2019-11-28] MEDS: POTASSIUM CHLORIDE 20 MEQ TABCR PO SCH ×2 (18:45→21:14)
[2019-11-28] MEDS: FERROUS GLUCONATE 324 MG TAB PO SCH (18:45)
[2019-11-28] MEDS: KETOROLAC 30 MG/ML VIAL IV SCH (18:47)
--- NOTE | 2019-11-28 19:00 | Operative Report ---
Post Operative Report Pre & Post Diagnosis Operation Date: 11/28/19 12:30 Pre-Op Diagnosis: RIGHT KNEE DEGENERATIVE JOINT DISEASE W/KNEE PAIN Post-Op Diagnosis: RIGHT KNEE DEGENERATIVE JOINT DISEASE W/KNEE PAIN I identified the patient and participated in the time-out.: Yes Procedure Operation Date: 11/28/19 12:30 Actual Procedures p Right Total Knee Arthroplasty(Right) - Eyal Mg MD Surgeon Eyal Mg MD Process Engineering Technician Josefa, PAC Estimated Blood Loss 100 Findings Consistent with Post-Op Diagnosis Operative findings revealed advanced right knee DJD with a grade 4 [id number] disease in all 3 compartments. This is most severe in the medial and patellofemoral compartments. He had a varus deformity to his knee. Large knee joint effusion. He had osteophytes in all 3 compartments. He had a very large soft soft tissue envelope. Fluids 1300 cc. Specimens Right knee sent for pathology. Drains None. Anesthesia Type Spinal MAC Complications none Disposition Accompanied Patient To Recovery: No Disposition: Recovery Room Indications Patient is a 49-year-old very large gentleman is had a long history of bilateral knee pain discomfort. He is been through extensive conservative treatment in the past without adequate relief. He underwent a left knee replacement a year ago and is done well from this. X-rays show advanced right knee DJD. He elected proceed with total knee arthroplasty. Due to the patient's large size and body habitus with a BMI of [address] a stem in the tibia in order to maximize the stability and long-term prognosis of the tibial component. Description of Procedure Operative implants consisted of: 1. Biomet Vanguard size 80 right posterior by femoral component. 2. Biomet size 79 tibial tray with a 16 x 80 mm offset stem with a 5 mm offset and a large cruciate wing. 3. 10 mm posterior box polyethylene insert. 4. 34 x 8 and half all poly-patella. Patient was taken to the operating room identified and placed on the operating table supine position protectors were properly padded. IV antibiotics were provided by anesthesia team. A spinal anesthetic and abductor canal block had provided holding area. Gama cath was placed in sterile fashion. Right thigh turn was then placed in the right lower extremities and prepped and draped in usual sterile fashion. The right leg was elevated and exsanguinated with use of an Esmarch and turns placed at 3 and 50 mmHg. An anterior approach of the right knee was then performed to longitudinal incision centered over the patella. Sharp dissection was cut through subcutaneous tissue down below the extensor mechanism. A medial parapatellar incision was made. Some subperiosteal dissection was carried out medially but the fat pad was resected from each patella tendon. Lateral patellofemoral ligament was released and the patella was subluxated laterally. The knee was flexed. The osteophytes were taken off the distal femur. The ACL and PCL were then released and distal femur the tibia subluxated anteriorly. I then resected the tibial eminence. I then entered the tibial canal with a canal finder and then reamed up to a size 16 reamer. I used a 16 reamer to cut the proximal tibia remove about 5 mm of bone from the most efficient aspect medial tibial plateau. We then sized the tibia to a size 79. Some osteophytes were taken off medial and posterior medially. Proximal tibia was then prepared for a 5 mm offset stem with a large cruciate wing. The trial implant was assembled and placed in the tibia and attention drawn the femur. The distal femur then with a sharp drill bit intramedullary canal was suction. A right 6 degree valgus cutting guide was placed. This femoral cutting block was pinned in place but distal femoral cut was made to take an additional 3 mm bone off distal femur. The femur was then sized to a size 80. We did downsize a slightly. The AP cutting block was pinned parallel to the epicondylar axis which was 4 degrees of external rotation. The anterior cut, anterior chamfer, posterior cut, posterior chamfer cuts were made. Box cutting guide was placed and just slightly lateral and the box cut was made. The knee was flexed. The remnants of the medial lateral menisci were excised. The osteophytes were taken off the posterior aspect of the femur. A trial femoral component was placed. I then placed a 10 mm insert. This is a re-created appropriate soft tissue tension in flexion and extension and the knee was stable. We elect to place these implants. Attention drawn the patella. Patella was cleaned of all soft tissues. Patella thickness measured 28 mm in thickness was cut down to 15. Was sized to a size 34 patella. The locals were drilled for 34 patella. The lateral osteophytes removed. Patella button was placed. Knee was taken through range of motion patella tracked nicely with no thumbs test. Attention drawn to placing the permanent components. All trial components were removed. A bone plug was placed in the disc femur limit blood loss. A double batch Palacos G cement was mixed all along with an additional gram of vancomycin due to his large size and his obesity. A Biomet Vanguard size 80 right posterior by femoral component, size 79 tibial tray with an 80 x 16 mm offset stem with a large cruciate wing, 10 mm posterior bite polyethylene insert, and a 34 by a Dusty all poly-patella were then cemented in place. Knees brought into full extension total cement hardened. Final cement check was then performed. Of note, we just cemented the metaphysis and the surface of the tibia not the stem. He had patient did receive 1 g of tranexamic acid. I did inject locally with 100 cc of combination of 20 cc of Exparel, 30 cc of normal saline, 50 cc of quarter percent Marcaine with epinephrine. The tourniquet was then let down for a final tourniquet time of 81 minutes at 350 mmHg. The wounds once again irrigated. The extensor mechanism then closed with combination 1 PDS suture #1 Vicryl suture in [id number] fashion. The extensor mechanism checked found to be intact the subcutaneous tissue then closed with 2 Dexon suture in a buried interrupted fashion skin was closed skin yaakov. Leg was then cleaned dried a sterile dressing composed of Xeroform, 4 x 4's, sterile cast padding and an Ashutosh bandage were applied. Patient transferred to the recovery room in stable condition. Patient tolerated procedure well no complications. I attest to the content of the Intraoperative Record and any orders documented therein. Any exceptions are noted below.
[2019-11-28] MEDS ORDERED: SENNA 8.6 MG TAB PO SCH (21:00)
[2019-11-28] MEDS ORDERED: DULOXETINE HCL 30 MG CAP PO SCH (21:00)
[2019-11-28] MEDS: TAPENTADOL HCL ER 50 MG TABCR PO SCH (21:11)
[2019-11-28] MEDS: ACETAMINOPHEN 500 MG TAB PO SCH (21:12)
[2019-11-28] MEDS: DOCUSATE SODIUM 100 MG CAP PO SCH (21:13)
[2019-11-28] MEDS: ASPIRIN 81 MG ECTAB PO SCH (21:14)
[2019-11-28] MEDS: CEFAZOLIN 2000MG 2,000 MG/15 ML SYR IV SCH (21:19)
[2019-11-28] MEDS ORDERED: TRANEXAMIC ACID / 0.7% NACL 1,000 MG/100 ML BAG IV SCH (22:29)
[2019-11-29] MEDS: KETOROLAC 30 MG/ML VIAL IV SCH ×2 (00:24→05:49)
[2019-11-29] MEDS: CHECK SCOPOLAMINE PATCH PLACEMENT SCH ×2 (00:24→08:39)
[2019-11-29] MEDS: CEFAZOLIN 2000MG 2,000 MG/15 ML SYR IV SCH (05:49)
[2019-11-29] MEDS: ACETAMINOPHEN 500 MG TAB PO SCH (05:50)
[2019-11-29 06:25] LABS: Hematocrit (blood only) 35.7 % (42-52); Hemoglobin 11.4 g/dL (14.0-18.0); Mean Corpuscular Hgb Conc 31.9 g/dL (32-36); Mean Corpuscular Volume 90.8 fL (80-100); Mean Platelet Volume 10.2 fL (7.4-10.4); Platelet Count 111 K/uL (130-400); RDW Coefficient of Variation 13.9 % (11.5-14.5); RDW Standard Deviation 46.7 fL (36.4-46.3); Red Blood Count 3.93 M/uL (4.7-6.1); White Blood Count 5.72 K/uL (4.8-10.8)
[2019-11-29] MEDS ORDERED: LEVOTHYROXINE SODIUM 200 MCG TABLET PO SCH (06:30)
[2019-11-29 07:07] LABS: BUN Creatinine Ratio 12.4 (10-20); Calcium 8.5 mg/dl (8.5-10.1); Creatinine Clr Calc Pharmacy 90.4 ml/min; Est GFR (African American) 49.4; Est GFR (Non-African American) 42.7; Potassium 4.3 mmol/L (3.5-5.1)
[2019-11-29] MEDS: ASPIRIN 81 MG ECTAB PO SCH (08:45)
[2019-11-29] MEDS: DOCUSATE SODIUM 100 MG CAP PO SCH (08:45)
[2019-11-29] MEDS: FERROUS GLUCONATE 324 MG TAB PO SCH (08:45)
[2019-11-29] MEDS: ASCORBIC ACID 500 MG TAB PO SCH (08:45)
[2019-11-29] MEDS: POTASSIUM CHLORIDE 20 MEQ TABCR PO SCH (08:46)
[2019-11-29] MEDS: TAPENTADOL HCL ER 50 MG TABCR PO SCH (08:47)
[2019-11-29] MEDS ORDERED: ATORVASTATIN 40 MG TAB PO SCH (09:00)
[2019-11-29] MEDS ORDERED: MULTIVITAMIN TAB PO SCH (09:00)
[2019-11-29] MEDS ORDERED: MONTELUKAST SODIUM 10 MG TABLET PO SCH (09:00)
[2019-11-29] MEDS ORDERED: AMLODIPINE BESYLATE 5 MG TAB PO SCH (09:00)
[2019-11-29] MEDS ORDERED: METOPROLOL SUCC 50MG EXT REL TAB PO SCH (09:00)
[2019-11-29] MEDS ORDERED: PANTOprazole 40 MG TAB PO SCH (09:00)
--- NOTE | 2019-11-29 09:11 | Progress Note ---
DATE: 11/29/2019 SUBJECTIVE: A 49-year-old gentleman postop day 1 from right knee replacement. He is doing quite well. Pain is very manageable. He has been getting around well. No chest pain or shortness of breath. He really wants to go home. OBJECTIVE: VITAL SIGNS: Temperature 36.9. Vital signs stable. GENERAL: A very large middle-aged male. He is sitting by the bedside and looks pretty comfortable. LUNGS: Clear to auscultation. HEART: Regular rate and rhythm. ABDOMEN: Soft, nontender, nondistended. EXTREMITIES: Grossly neurovascularly intact except as follows. Examination of the right leg reveals the dressing to be in place. No significant drainage. He can do a straight leg raise. He bends to 90 degrees without much difficulty. He can dorsiflex and plantarflex his foot appropriately. He is neurologically intact. LABORATORY DATA: Hemoglobin is 11.4. Hematocrit 35.7. Electrolytes are stable. Creatinine just slightly elevated at 1.82. ASSESSMENT: A 49-year-old gentleman postop day 1 from right knee replacement, doing well. Pain is controlled. He is neurologically intact. He is wanting to go home. PLAN: 1. DVT prophylaxis including thigh-high TEDs, SCDs, and he is back on his Eliquis starting tomorrow at a regular dose. 2. PT/OT. Weight bear as tolerated. Right total knee protocol. 3. Pain control, doing pretty well with current pain regimen. 4. Disposition: Plan to discharge to home and he is going to go to outpatient therapy.
[2019-11-29] MEDS ORDERED: APIXABAN 2.5 MG TAB PO SCH (21:00)
--- NOTE | 2019-12-05 14:34 | Discharge Summary ---
ADMITTING PHYSICIAN AND SURGEON: Dr. Eyal Mg. ADMITTING DIAGNOSIS: Right knee degenerative joint disease. SURGERY PERFORMED: Right total knee arthroplasty. SECONDARY DIAGNOSES: Hypertension, sleep apnea, history of a mini stroke, gastroesophageal reflux disease, obesity. CONSULTS: None obtained. HISTORY AND PHYSICAL EXAMINATION: Well documented in the patient's chart. HOSPITAL COURSE: The patient was admitted on 11/28/2019 underwent total knee arthroplasty, tolerated the procedure well. There were no complications. He was transferred to the PACU postoperatively and later to the orthopedic floor for further care. He was given Ancef for antibiotic prophylaxis, CAROLEE stockings, SCDs and Eliquis for DVT prophylaxis. Hemoglobin, hematocrit and vital signs were monitored during his hospital stay and remained stable, did not require any blood transfusions. There were no complications. On postoperative day 1, he was tolerating a regular diet, pain was controlled with oral pain medicine. He was participating in physical therapy. Postop day 1, he was discharged home, set up with home health services, given printed discharge instructions as well as new prescriptions for extra strength Tylenol and oxycodone. Continue his home medicines. Continue physical therapy, weightbearing as tolerated, CAROLEE stockings. Follow up approximately 2 weeks postop or sooner if there are any problems or concerns.
== END 2019-11-29 12:00 | disposition home health service (06) ==
LOC: 3E 09:46 → ASU 09:46

== ENCOUNTER 2020-03-31 18:28 | Inpatient (IN) ==
[2020-03-31] MEDS ORDERED: VANCOMYCIN CONSULT ACTIVE PRN (21:55)
--- NOTE | 2020-03-31 22:06 | History & Physical Report ---
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 R Knee cellulitis -Pt states he has had progressive swelling, redness, pain and warmth of right knee over the last 4 days. -On exam per nursing, R knee is ~12.5cm bigger above the knee than the left -Recent Hx of R total knee arthroplasty on 11/28/[address] Mg -afebrile, normal WBC -paperwork states outside CT scan 03/31 notes "R large prepatellar collection, nonspecific, can represent bursitis or fluid tracking through defect in quads tendon into prepatellar soft tissues." Did not physically see CD with CT scan -consult placed to orthopedics, Dr. Mg -NPO for possible procedure -hold home Eliquis, pt states last dose was day prior -started on Vancomycin and Cefepime, 1 previous dose of Ancef prior to arrival as direct transfer -PRN IV tylenol 1000mg q8h ordered for pain -consider PT/OT FABBY -Pt has baseline Cr of 1.4 in Nov 2019. -Cr currently elevated -Pt states he has been using home Lasix to help with leg swelling -hold home Lasix and other nephrotoxic meds -NSS@80mls Asthma -continue home albuterol inhaler prn -currently NPO, hold home singulair 10mg HTN -currently NPO, hold home amlodipine 2.5mg daily, metoprolol succinate 100mg daily -Pt denies HCTZ use for BP control HLD -currently NPO, hold home atorvastatin 40mg Postablative Hypothyroidism -currently NPO, hold home levothyroxine 212.5mcg daily GERD -currently NPO, hold home omeprazole 20mg daily -consider formulary change while hospitalized Hx of stroke -hold home Eliquis 5mg BID FEN/GI: NPO, NSS@80mls CODE STATUS: Full code DVT prophylaxis: Holding home PO Eliquis Dispo: Med/Surg Admission and Anticipated Discharge Date Admission Date: March 31, 2020 History of Present Illness Primary Care Provider: Anish Desouza Pt is a 50yo with a PMHx of right knee DJD s/p R total knee arthroplasty on 11/28/2019, HTN, HLD GERD, asthma, DEBORA, Anxiety, postablative hypothyroidism and stroke who presents with R knee cellulitis. States he has had bilateral knee surgery with the Right being done a few months ago. Over the last 4 days, right knee has been progressively getting worse with the redness and swelling, to the point that it got tight today an he presented to the [facility]. 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 States he has been using lasix quite a bit recently with little relief of the swelling. Denies any fevers, chills or night sweats. States his ambulation is limited. Pt admitted as a direct transfer from [facility] Allergies Allergy/AdvReac Type Severity Reaction Status Date / Time lisinopril Allergy Unknown lip swelled Verified 11/28/19 10:21 Penicillins Allergy Unknown unsure as Verified 11/28/19 10:21 a child Home Medications Home Medications Medication Instructions Recorded Confirmed Type Eliquis 5 mg PO BID 10/24/18 03/31/20 History albuterol sulfate 2.5 mg INHALATION QID PRN 10/24/18 03/31/20 History albuterol sulfate [Ventolin HFA] 2 puff INHALATION QID PRN 10/24/18 03/31/20 History atorvastatin 40 mg PO QAM 10/24/18 03/31/20 History duloxetine 30 mg PO HS 10/24/18 03/31/20 History fluticasone propionate [Flonase 2 spray INTRANASAL UD PRN 10/24/18 03/31/20 History Allergy Relief] levothyroxine 212.5 mcg PO QAM 10/24/18 04/01/20 History metoprolol succinate 100 mg PO QAM 10/24/18 03/31/20 History montelukast [Singulair] 10 mg PO QAM 10/24/18 03/31/20 History potassium chloride 20 meq PO QID 10/24/18 03/31/20 History amlodipine 2.5 mg PO QAM 11/10/19 03/31/20 History omeprazole 20 mg PO QAM 11/10/19 03/31/20 History miscellaneous medical supply #1 ea 03/08/20 03/08/20 Rx Past Med/Surg History Medical History (Updated 04/01/20 @ 15:33 by USHA Marcos) Asthma Stable and controlled - occ wheezing with weather changes CKD (chronic kidney disease) Stable - was taken off Lasix and HCTZ - slowly improving GERD (gastroesophageal reflux disease) Well controlled and stable with OTC Omeprazole Hx of stroke without residual deficits 2015 - denies residual effects- no longer needs to follow with neuro- follows only with PCP Hyperlipidemia Hypertension Hypothyroidism s/p iodine radiation treatment secondary to hyperthyroidism Leg edema Mild/stable since d/c of diuretics Morbid obesity Osteoarthritis Right knee DJD Sleep apnea no CPAP (non-compliant, "cannot tolerate") Surgical History (Updated 12/14/19 @ 10:29 by Eyal Mg MD) Family history of reaction to anesthesia Mother/father "slow to wake"- no prolonged intubation or ICU stay History of arthroscopy R/L knee x 2 History of arthroscopy of shoulder left History of back surgery fracture back and has cage and hardware History of bilateral knee replacement History of carpal tunnel surgery both hands and left elbow release of nerve History of endoscopic sinus surgery History of left knee replacement Left TKA: 12/09/18: SAB x 3 attempts + PNB at [facility] History of loop recorder placed 07/23/17 after CVA loooking for arrhythmia , [employer]- still in place History of tonsillectomy PONV (postoperative nausea and vomiting) Social History Preferred Language: Belarusian Communication Ability: Effective Embedded Nurse Required: No Beliefs That Will Affect Care: None marital status: Current Living Situation: Spouse and Family Other Information That Helps Us Care for You: No Feels Safe at Home: Yes Safety Concerns: Feels Safe At This Time Smoking Status: Former smoker Tobacco Type: cigarettes ; Do You Dip or Chew Tobacco: No ; Smoking End Date: 1989 ; Second Hand Exposure: No ; Tobacco Cessation Education Requested by Patient: No Hx Alcohol Use: No Hx Substance Use: No Review of Systems Constitutional: no fever, no chills and no sweats Eyes: no worsening vision Ear, Nose, Mouth, Throat: no nasal congestion and no sore throat Respiratory: no cough and no dyspnea Cardiovascular: + edema; no chest pain and no palpitations Gastrointestinal: no abdominal pain, no nausea, no vomiting, no constipation and no diarrhea/loose stools Musculoskeletal: + joint pain Integumentary: + erythema (of R knee) Neurologic: + tingling; no numbness and no headache(s) Physical Exam Physical Exam: General: Alert, oriented, obese gentleman Skin: R knee with erythema Psych: Appropriate mood and affect Neuro: No gross deficits HEENT: NC/AT Chest: Nontender to palpation. CV: RRR, Normal s1, s2. Decreased heart sounds due to body habitus Resp: Breath sounds clear bilaterally, no increased effort of breathing. Abdomen: Soft, nontender Extremities: R knee swollen, warm, extremely tender to palpation Results & Data Results & Data ([facility]) Vital Signs (Past 12 Hours) Vital Signs Temp Pulse Resp BP Pulse Ox 03/31/20 21:00 37.1 C 109 H 28 H 145/86 H 95 Supervising Physician Co-Signing Physician Notes Attending addendum: I have physically seen this patient, have supervised the medical residents activities, and agree with the H&P unless as otherwise noted. Assessment and Plan: Prepatellar bursitis/cellulitis of right lower extremity- Accepted in transfer from [facility]. Status post right total knee arthroplasty on 11/28/2019 N.p.o. Hold Eliquis for now Place on vancomycin IV and cefepime IV Acetaminophen 1000 mg IV every 8 hours PRN mild pain or temperature Morphine sulfate 4 mg IV every 4 hours as needed severe pain Hypertension- While n.p.o., hold amlodipine and metoprolol succinate. Resume in the a.m. if no procedure anticipated. Acute kidney injury- Hold Lasix for now. Placed on NSS at 80 mils per hour. Repeat laboratories now. Remainder of orders and notations as noted Resident Activity Tracking Resident Involvement: Promotions Director Coverage Note Care Provided: Adult Hospital Medicine
[2020-03-31] MEDS ORDERED: VANCOMYCIN HCL 2,750 MG in SODIUM CHLORIDE 0.9% 500 ML IV ONE (22:30)
[2020-03-31 22:55] LABS: Basophils # (auto) 0.02 K/uL (0-0.2); Basophils % (auto) 0.3 %; Eosinophils # (auto) 0.28 K/uL (0-0.5); Eosinophils % (auto) 4.6 %; Hematocrit (blood only) 36.7 % (42-52); Hemoglobin 11.9 g/dL (14.0-18.0); Immature Granulocytes # (auto) 0.01 K/uL (0.00-0.02); Immature Granulocytes % (auto) 0.2 %; Lymphocytes # (auto) 0.68 K/uL (1.2-3.4); Lymphocytes % (auto) 11.1 %; Mean Corpuscular Hemoglobin 27.6 pg (25-34); Mean Corpuscular Hgb Conc 32.4 g/dL (32-36); Mean Corpuscular Volume 85.2 fL (80-100); Mean Platelet Volume 10.1 fL (7.4-10.4); Monocytes # (auto) 0.74 K/uL (0.11-0.59); Monocytes % (auto) 12.1 %; Neutrophils # (auto) 4.37 K/uL (1.4-6.5); Neutrophils % (auto) 71.7 %; Platelet Count 166 K/uL (130-400); RDW Standard Deviation 47.5 fL (36.4-46.3); Red Blood Count 4.31 M/uL (4.7-6.1)
[2020-03-31] MEDS: SODIUM CHLORIDE 0.9% 1000ML 1,000 ML IV SCH (23:05)
[2020-03-31 23:15] LABS: Albumin Level 2.5 gm/dl (3.4-5.0); Creatinine Clr Calc Pharmacy 77.2 ml/min; Est GFR (African American) 40.6; Potassium 3.9 mmol/L (3.5-5.1)
[2020-03-31 23:22] LABS: Albumin Globulin Ratio 0.5 (0.9-2); Bilirubin,Total 0.8 mg/dl (0.2-1); Globulin 4.9 gm/dl (2.5-4.0); Total Protein 7.4 gm/dl (6.4-8.2)
[2020-04-01] MEDS: CEFEPIME 2,000 MG in SYRINGE 7.5 ML IV SCH ×3 (00:13→15:42)
[2020-04-01] MEDS: ACETAMINOPHEN 1000 MG/100 ML IV IV PRN (00:13)
[2020-04-01] MEDS ORDERED: ALBUTEROL HFA 8 GM INHALER INH PRN (01:43)
[2020-04-01 05:50] LABS: Estimated Average Glucose 134 mg/dl; Hemoglobin A1C 6.3 % (4.5-5.6)
--- NOTE | 2020-04-01 07:54 | XRay Report ---
XR knee RT 1 or 2V routine CLINICAL HISTORY: knee pain COMPARISON: 11/28/2019 DISCUSSION: There are postsurgical changes of a total right knee arthroplasty. There is a longstem ti bial component. There are no acute fractures or dislocations. A suprapatellar joint effusion is suspe cted. There is marked anterior soft tissue swelling. IMPRESSION: 1. Postsurgical changes of a total right knee arthroplasty 2. Suspected small effusion 3. Marked anterior soft tissue swelling. ACT 112: Negative or not required by law. Electronically signed by: Marlo Lopez M.D. 04/01/2020 7:53 AM
[2020-04-01] MEDS ORDERED: VANCOMYCIN HCL 2,000 MG in SODIUM CHLORIDE 0.9% 500 ML IV SCH (08:00)
[2020-04-01 09:36] LABS: Basophils # (auto) 0.03 K/uL (0-0.2); Basophils % (auto) 0.5 %; Eosinophils # (auto) 0.36 K/uL (0-0.5); Eosinophils % (auto) 6.1 %; Hematocrit (blood only) 35.5 % (42-52); Hemoglobin 11.3 g/dL (14.0-18.0); Immature Granulocytes # (auto) 0.02 K/uL (0.00-0.02); Immature Granulocytes % (auto) 0.3 %; Lymphocytes % (auto) 11.9 %; Mean Corpuscular Hemoglobin 27.2 pg (25-34); Mean Corpuscular Hgb Conc 31.8 g/dL (32-36); Mean Corpuscular Volume 85.3 fL (80-100); Mean Platelet Volume 10.3 fL (7.4-10.4); Monocytes # (auto) 0.58 K/uL (0.11-0.59); Monocytes % (auto) 9.8 %; Neutrophils # (auto) 4.21 K/uL (1.4-6.5); Neutrophils % (auto) 71.4 %; Platelet Count 168 K/uL (130-400); RDW Coefficient of Variation 15.3 % (11.5-14.5); RDW Standard Deviation 47.6 fL (36.4-46.3); Red Blood Count 4.16 M/uL (4.7-6.1)
[2020-04-01 10:06] LABS: Albumin Level 2.2 gm/dl (3.4-5.0); BUN Creatinine Ratio 10.5 (10-20); Calcium 8.6 mg/dl (8.5-10.1); Creatinine Clr Calc Pharmacy 92.9 ml/min; Est GFR (African American) 50.8; Est GFR (Non-African American) 43.8; Potassium 3.6 mmol/L (3.5-5.1)
[2020-04-01 10:08] LABS: Albumin Globulin Ratio 0.5 (0.9-2); Bilirubin,Total 0.9 mg/dl (0.2-1); Globulin 4.7 gm/dl (2.5-4.0); Total Protein 6.9 gm/dl (6.4-8.2)
[2020-04-01] MEDS: SODIUM CHLORIDE 0.9% 1000ML 1,000 ML IV SCH ×2 (10:26→18:44)
[2020-04-01] MEDS ORDERED: DAPTOMYCIN CONSULT ACTIVE PRN (11:57)
--- NOTE | 2020-04-01 15:23 | Hospitalist Progress Note ---
Date of Service April 01, 2020 Assessment & Plan (1) Cellulitis: Pt is a 50yo with a PMHx of right knee DJD s/p R total knee arthroplasty on 11/28/2019, HTN, HLD GERD, asthma, DEBORA, Anxiety, postablative hypothyroidism and stroke who presents with R knee cellulitis as a direct admit from [facility]. -Recent Hx of R total knee arthroplasty on 11/28/[address] Mg -consult placed to orthopedics, Dr. Mg -hold home Eliquis, pt states last dose was day prior -Continue daptomycin and cefepime IV -PRN IV tylenol 1000mg q8h ordered for pain -consider PT/OT after procedure (2) FABBY (acute kidney injury): -Pt has baseline Cr of 1.4 in Nov 2019. -Cr 2.13, now trending down to 1.77 -Pt states he has been using home Lasix to help with leg swelling -hold home Lasix and other nephrotoxic meds -NSS@125 mls (3) Asthma: -continue home albuterol inhaler prn -hold home singulair 10mg (4) HTN (hypertension): Continue home amlodipine 2.5mg daily, metoprolol succinate 100mg daily (5) Hyperlipidemia: hold home atorvastatin 40mg while on daptomcyin (6) GERD (gastroesophageal reflux disease): continue home ppi (7) Hx of stroke without residual deficits: -hold home Eliquis 5mg BID for surgery tomorrow, hold statin while taking daptomycin (8) Hypothyroidism: Continue home levothyroxine (9) DVT prophylaxis: hold chemoprophylaxis for procedure tomorrow[facility] Admission and Anticipated Discharge Date Admission Date: March 31, 2020 Subjective Mr. Paige's wound began draining at 0200 this morning serosanguineous fluid from knee incision. He felt a marked reduction in pressure with this, still some pain at times. Intermittent chills and feeling like he is going to run a fever ROS Constitutional: see HPI Respiratory: no sob,cough, sputum, or wheezing Cardiac: no chest pain, palpitations, edema, orthopnea or lightheadedness GI: no abdominal pain, nausea, vomiting, diarrhea or constipation : no dysuria or hesitancy Extremities: no joint pain or weakness Skin: no rash All other systems reviewed and negative Physical Exam Physical Exam: General: no distress Eyes: normal inspection, PERLL Respiratory: chest non tender, clear to auscultation, normal breath sounds, no respiratory distress, no accessory muscle use Cardiac: regular rate and rhythm, no rub or gallop, no murmur, no edema, no jvd GI/: active bowel sounds, no abd pain or tenderness, soft, non distended Extremities: normal range of motion, normal strength, non tender Neuro/Psych: alert and oriented x 3, normal mood and affect Skin: normal color, dry, right knee incision draining serosanguineous fluid. Incision with three dark blisters Results & Data Results & Data ([facility]) Vital Signs (Past 12 Hours) Vital Signs Temp Pulse Resp BP Pulse Ox 04/01/20 15:08 36.8 C 101 H 18 135/79 98 04/01/20 07:42 37.0 C 104 H 18 125/80 97 PG Care Time/CCT Total # of Minutes Spent Total Time Spent with Patient: Total time spent is greater than 50% in coordination of care (as documented) at patient's floor/unit and/or counseling patient: Coding Level of Care Code 98296 Subseq Hosp Care Lvl 3 Diagnoses Cellulitis L03.90 FABBY (acute kidney injury) N17.9 Asthma J45.909 HTN (hypertension) I10 Hyperlipidemia E78.5 GERD (gastroesophageal reflux disease) K21.9 Hx of stroke without residual deficits Z86.73 Hypothyroidism E03.9 DVT prophylaxis Z29.9
[2020-04-01] MEDS: DAPTOmycin 800 MG in SYRINGE 0 ML IV SCH (15:41)
[2020-04-01] MEDS: POTASSIUM CHLORIDE 20 MEQ TABCR PO SCH ×2 (17:29→20:10)
[2020-04-01 19:37] LABS: Appearance Synovial Fluid CLOUDY; Color Synovial Fluid ORANGE; Mononuclear WBC Synovial 0.6 %; Polynuclear WBC Synovial 99.4 %; RBC Synovial Fluid (A) 47000 /uL; Source Synovial Fluid KNEE; WBC Synovial Fluid (A) 49086 /ul (0-200)
[2020-04-01] MEDS: DULOXETINE HCL 30 MG CAP PO SCH (20:10)
--- NOTE | 2020-04-01 22:08 | Consultation Report ---
DATE OF CONSULTATION: 03/31/2020 ORTHOPEDIC CONSULT CHIEF COMPLAINT: Right knee pain, discomfort, swelling after knee replacement 4 months ago. HISTORY OF PRESENT ILLNESS: The patient is a 50-year-old very large gentleman with a BMI of 53 and multiple medical comorbidities including history of hypertension, gastroesophageal reflux disease, anxiety, hypothyroidism, mini strokes who is now 4 months out from a right knee replacement. He had an uneventful postoperative course and then on of last week, 4 days ago, he has developed some increased soreness in his knee. It gradually got a little bit worse over the next day or two then markedly worse over the weekend. He woke up Wednesday morning and had markedly increased pain, discomfort, swelling and redness. He was taken to [facility] and then transferred to our institution for further care. Denies any recent fevers. Denies any recent wounds. 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 No other complaints. He did have a left knee replacement done a little over a year ago and that is doing fine. PAST MEDICAL HISTORY: 1. Hypertension. 2. Gastroesophageal reflux disease. 3. Elevated cholesterol. 4. Morbid obesity with BMI of 53. 5. History of mini strokes on [facility]. Remainder of the review of system is per the admission H and P. OBJECTIVE: VITAL SIGNS: Temperature 36.8. Vital signs are stable. Examination of the right knee reveals a very large soft tissue envelope. He has diffuse and marked redness and swelling around his entire incision without palpable fluid in the subcutaneous tissues. He is in a slightly bent position. There is no instability. He can do a straight leg raise with some effort. He does have some areas in the front of his knee where he has developed draining since early this morning. It is purulent type drainage. He is neurologically intact. LABORATORY DATA: His white cell count 5.90. Hemoglobin 11.3. Hematocrit 35.5. His sed rate is markedly elevated at 90. His C-reactive protein is elevated at 44.80. Creatinine is also slightly elevated at 1.77 which is fairly chronic for him. X-RAYS: X-rays of the knee were reviewed. It shows a cemented posterior stabilized total knee arthroplasty with a tibial stem. He has got a lot of soft tissue swelling anterior in his knee. It is difficult to appreciate any effusion. There are no signs of loosening or bone destruction around the implants. ASSESSMENT: A 50-year-old gentleman, morbidly obese with hypertension, history of mini strokes, elevated cholesterol, 4 months out from a right knee replacement with obvious infection. On exam, it looks to be ulna prepatellar bursa area but very difficult to discern. He did have a CT scan at [facility] with a report suggested that the fluid is on the prepatellar bursa area. I think that unlikely, but it is certainly possible. PLAN: We aspirated his prepatellar bursa area today and got an inflammatory looking fluid, but not pus-like what appears from the anterior aspect of his knee. I did not want to aspirate his knee joint for fear of contaminating it if it was not part of the infection. We are going to take him to the operating room tomorrow and wash this out. It could be anything from an irrigation and debridement with septic prepatellar bursitis to I and D and polyethylene exchange versus a resection arthroplasty and antibiotic spacer placement. I talked him about all these issues. He is really hoping not to have this knee removed. We would like to try anything short of that. We will proceed along one of these 3 courses depending on what we find at the time of surgery. The risks and benefits of irrigation and debridement of the knee and plus or minus polyethylene exchange, plus or minus resection arthroplasty were explained to the patient including but not limited to DVT, PE, , infection, neurological injury, vascular injury, bleeding problem, pain, limited range of motion, stiffness, failure to relieve symptoms, incomplete relief of symptoms, need for further surgery in future, fracture, leg length inequality, nerve palsy, persistent pain, and persistent infection. The patient understands and desires to proceed. Informed consent was obtained. We will hold his Eliquis with plans to have a surgery tomorrow. We will make him n.p.o. after midnight. We will continue on medical management as per the medicine service. DESCRIPTION OF PROCEDURE: The patient's right knee was prepped with alcohol. I aspirated the prepatellar bursa for about 40 mL of inflammatory looking fluid. We sent this off for analysis.
[2020-04-02] MEDS: CEFEPIME 2,000 MG in SYRINGE 7.5 ML IV SCH ×3 (00:10→21:43)
--- NOTE | 2020-04-02 01:09 | Communication Note ---
Date of Service: April 02, 2020 Notified by nursing that they received a call from [facility] concerning pt's blood cultures. One ANAEROBIC bottle growing gram positives in clusters. Confirmed by nursing. Aerobic bottles with NGTD. Noted that pt is currently on daptomycin which would provide coverage for anaerobic gram positives as well. No changes made to antibiotics overnight. Resident Activity Tracking Resident Involvement: Director Of [employer] Coverage Note Care Provided: Adult Hospital Medicine
--- NOTE | 2020-04-02 02:04 | Billing Data ---
Date of Service April 02, 2020 Coding Level of Care Code 06159 Initial Inpt Care Lvl 3
[2020-04-02] MEDS: SODIUM CHLORIDE 0.9% 1000ML 1,000 ML IV SCH ×2 (02:37→10:11)
--- NOTE | 2020-04-02 02:59 | Communication Note ---
Date of Service: April 02, 2020 Notified by nursing that [facility] called once more. Second blood culture growing staph aureus, DNA by PCR not detected. Continue Daptomycin. Resident Activity Tracking Resident Involvement: [employer] Coverage Note Care Provided: Adult Hospital Medicine
[2020-04-02] MEDS: LEVOTHYROXINE SODIUM 25 MCG TABLET PO SCH (05:40)
[2020-04-02] MEDS: LEVOTHYROXINE SODIUM 200 MCG TABLET PO SCH ×2 (05:40→10:14)
[2020-04-02 06:06] LABS: Basophils # (auto) 0.03 K/uL (0-0.2); Basophils % (auto) 0.5 %; Eosinophils # (auto) 0.41 K/uL (0-0.5); Eosinophils % (auto) 7.2 %; Hematocrit (blood only) 33.9 % (42-52); Hemoglobin 10.7 g/dL (14.0-18.0); Immature Granulocytes # (auto) 0.03 K/uL (0.00-0.02); Immature Granulocytes % (auto) 0.5 %; Lymphocytes # (auto) 0.56 K/uL (1.2-3.4); Lymphocytes % (auto) 9.8 %; Mean Corpuscular Hemoglobin 27.1 pg (25-34); Mean Corpuscular Hgb Conc 31.6 g/dL (32-36); Mean Corpuscular Volume 85.8 fL (80-100); Mean Platelet Volume 9.7 fL (7.4-10.4); Monocytes # (auto) 0.62 K/uL (0.11-0.59); Monocytes % (auto) 10.9 %; Neutrophils # (auto) 4.05 K/uL (1.4-6.5); Neutrophils % (auto) 71.1 %; Platelet Count 202 K/uL (130-400); RDW Coefficient of Variation 15.3 % (11.5-14.5); RDW Standard Deviation 48.6 fL (36.4-46.3); Red Blood Count 3.95 M/uL (4.7-6.1)
[2020-04-02 06:41] LABS: BUN Creatinine Ratio 11.2 (10-20); Calcium 8.5 mg/dl (8.5-10.1); Creatinine Clr Calc Pharmacy 106.1 ml/min; Est GFR (African American) 59.6; Est GFR (Non-African American) 51.4; Potassium 3.6 mmol/L (3.5-5.1)
--- NOTE | 2020-04-02 09:08 | Hospitalist Progress Note ---
Date of Service April 02, 2020 Assessment & Plan (1) Cellulitis: Pt is a 50yo with a PMHx of right knee DJD s/p R total knee arthroplasty on 11/28/2019, HTN, HLD GERD, asthma, DEBORA, Anxiety, postablative hypothyroidism and stroke who presents with R knee cellulitis as a direct admit from [facility]. -Recent Hx of R total knee arthroplasty on 11/28/[address] Mg - Blood cultures from [place] are growing staph. Will repeat cultures. -hold home Eliquis, pt states last dose was day prior -Continue daptomycin and cefepime IV -PRN IV tylenol 1000mg q8h ordered for pain -consider PT/OT after procedure - Dr. Mg will take patient to OR today. Patient's electrolytes are wnl, kidney function is nearly at baseline today at 1.55. RCRI is 6.0% for history of CVA. Will order EKG prior to OR. Stress test 03/25 showed medium sized severe intensity perfusion defect involving inferior wall and true apex that is partially reversible that could represent an area of ischemia. EF was 60%. Cardiology consulted for preop clearance. Eliquis has been held since 03/31. Will need to monitor hgb post op as patient is anemic. -Discussed with cardiology and patient is ok for surgery today. He can follow up further outpatient per his pcp's discretion. Anesthesia updated (2) Bacteremia: As above, repeat cultures pending, continue daptomycin and cefepime until surgical cultures result (3) FABBY (acute kidney injury): -Pt has baseline Cr of 1.4 in Nov 2019. -Cr 2.13, now trending down to 1.55 -Pt states he has been using home torsemide daily to help with leg swelling -hold home torsemide and other nephrotoxic meds -NSS@125 mls (4) Asthma: -continue home albuterol inhaler prn. Patient reports asthma is mild and well controlled, seasonal -hold home singulair 10mg (5) HTN (hypertension): Continue home amlodipine 2.5mg daily, metoprolol succinate 100mg daily (6) Hyperlipidemia: hold home atorvastatin 40mg while on daptomcyin (7) GERD (gastroesophageal reflux disease): continue home ppi (8) Hx of stroke without residual deficits: -hold home Eliquis 5mg BID for surgery, hold statin while taking daptomycin (9) Hypothyroidism: Continue home levothyroxine (10) DVT prophylaxis: hold chemoprophylaxis for procedure, SCDs Admission and Anticipated Discharge Date Admission Date: March 31, 2020 Subjective Mr. Paige continues to have some aches and chills but pain is controllable. Right leg is still swollen, covered with WHIT wrap. No other complaints today. ROS Constitutional: see HPI Respiratory: no sob,cough, sputum, or wheezing Cardiac: no chest pain, palpitations, edema, orthopnea or lightheadedness GI: no abdominal pain, nausea, vomiting, diarrhea or constipation : no dysuria or hesitancy Extremities: no joint pain or weakness Skin: no rash All other systems reviewed and negative Physical Exam Physical Exam: General: no distress Eyes: normal inspection, PERLL Respiratory: chest non tender, clear to auscultation, normal breath sounds, no respiratory distress, no accessory muscle use Cardiac: regular rate and rhythm, no rub or gallop, no murmur, no edema, no jvd GI/: active bowel sounds, no abd pain or tenderness, soft, non distended Extremities: normal range of motion, normal strength, non tender Neuro/Psych: alert and oriented x 3, normal mood and affect Skin: normal color, dry, right knee incision draining serosanguineous fluid. Incision with three dark blisters Results & Data Results & Data ([facility]) Vital Signs (Past 12 Hours) Vital Signs Temp Pulse Resp BP Pulse Ox 04/02/20 07:51 36.9 C 72 16 146/77 H 92 04/01/20 23:15 37 C 101 H 16 145/81 H 95 PG Care Time/CCT Total # of Minutes Spent Total Time Spent with Patient: Total time spent is greater than 50% in coordination of care (as documented) at patient's floor/unit and/or counseling patient: Coding Level of Care Code 59737 Subseq Hosp Care Lvl 3 Diagnoses Cellulitis L03.90 Bacteremia R78.81 FABBY (acute kidney injury) N17.9 Asthma J45.909 HTN (hypertension) I10 Hyperlipidemia E78.5 GERD (gastroesophageal reflux disease) K21.9 Hx of stroke without residual deficits Z86.73 Hypothyroidism E03.9 DVT prophylaxis Z29.9
[2020-04-02] MEDS: MONTELUKAST SODIUM 10 MG TABLET PO SCH (10:02)
[2020-04-02] MEDS: POTASSIUM CHLORIDE 20 MEQ TABCR PO SCH ×4 (10:02→22:17)
[2020-04-02] MEDS: PANTOprazole 40 MG TAB PO SCH (10:02)
[2020-04-02] MEDS: AMLODIPINE BESYLATE 5 MG TAB PO SCH (10:02)
[2020-04-02] MEDS: METOPROLOL SUCC 50MG EXT REL TAB PO SCH ×2 (10:02→10:13)
[2020-04-02] MEDS ORDERED: DAKIN'S SOLN 0.5% FULL STRENGTH 473ML BTL EXT PRN (11:00)
--- NOTE | 2020-04-02 11:40 | Cardiology Consultation ---
Date of Consultation April 02, 2020 Assessment & Plan (1) HTN (hypertension): Patient is a 50 year old male with PMHx R knee replacement Nov 2019, Asthma, HTN, HLD, GERD, Hypothyroidism, Hx CVA consulted for pre-op clearance prior to a R knee incision and drainage. Patient notes that he had a nuclear stress test on March 25 that showed some abnormalities to the inferior wall. Pre-Op Clearance for R knee I&D -Patient's nuclear stress report on 03/25/20 read as "There is a medium sized, severe intensity perfusion defect involving inferior wall and true apex that is partially reversible. This could represent an area of ischemia." LV ejection fraction 60%. -Based on the report concern for diaphragmatic attenuation vs scar with monet- infarct ischemia vs, less likely, ischemia -Patient already on beta khushboo therapy with Metoprolol Succinate 100mg QD -As patient has been asymptomatic throughout, less concern for ischemia -Patient may undergo surgery today -Patient can follow up as an outpatient for the abnormal Lexiscan per his primary care provider Hypertension -Continue Amlodipine and Metoprolol Hyperlipidemia -Continue Atorvastatin Hypothyroidism -Continue Levothyroxine (2) Hypothyroidism: (3) History of bilateral knee replacement: (4) Cellulitis: (5) Encounter for pre-operative examination: (6) Right knee DJD: (7) Hyperlipidemia: Supervising Physician Co-Signing Physician Notes Patient seen and examined with Dr. Mariee. Agree with his assessment and plan. Patient gives no cardiac symptoms. He remains on a beta-khushboo. Low risk Lexiscan study. Suspect diaphragmatic attenuation or inferior infarction with monet-infarction ischemia. Cardiac follow-up to be determined by his primary care provider. History of Present Illness Reason for Consultation: Preop Clearance Attending Physician: Leandro Almonte MD History of Present Illness Patient is a 50 year old male with PMHx R knee replacement Nov 2019, Asthma, HTN, HLD, GERD, Hypothyroidism, Hx CVA consulted for pre-op clearance prior to a R knee incision and drainage. Patient notes that he had a Nuclear stress test on March 25 that showed some slight abnormalities to his inferior wall. Patient states that this all started when he had gone to [place] ED 2 weeks ago for R knee/leg pain. At that time he had troponins drawn which were elevated (patient states that he has a history of elevated troponins and that he had mentioned that to the physician caring for him at the time). He was instructed to follow up with his PCP for the elevated troponins and did so the following day. He notes that he was then sent for Nuclear stress study on March 25 and was supposed to make an appointment to see [facility], but was unable to as he is currently inpatient awaiting surgery. Patient notes that throughout all of this he has not had any chest pain, chest pressure, dizziness, shortness of breath, or palpitations. He does note occasional fevers and chills, but attributes it to his R knee. He has no other complaints at this time. Allergies Allergy/AdvReac Type Severity Reaction Status Date / Time lisinopril Allergy Unknown lip swelled Verified 11/28/19 10:21 Penicillins Allergy Unknown unsure as Verified 11/28/19 10:21 a child Home Medications Home Medications Medication Instructions Recorded Confirmed Type Eliquis 5 mg PO BID 10/24/18 03/31/20 History albuterol sulfate 2.5 mg INHALATION QID PRN 10/24/18 03/31/20 History albuterol sulfate [Ventolin HFA] 2 puff INHALATION QID PRN 10/24/18 03/31/20 History atorvastatin 40 mg PO QAM 10/24/18 03/31/20 History duloxetine 30 mg PO HS 10/24/18 03/31/20 History fluticasone propionate [Flonase 2 spray INTRANASAL UD PRN 10/24/18 03/31/20 History Allergy Relief] levothyroxine 212.5 mcg PO QAM 10/24/18 04/01/20 History metoprolol succinate 100 mg PO QAM 10/24/18 03/31/20 History montelukast [Singulair] 10 mg PO QAM 10/24/18 03/31/20 History potassium chloride 20 meq PO QID 10/24/18 03/31/20 History amlodipine 2.5 mg PO QAM 11/10/19 03/31/20 History omeprazole 20 mg PO QAM 11/10/19 03/31/20 History miscellaneous medical supply #1 ea 03/08/20 03/08/20 Rx Patient History Medical History (Updated 04/02/20 @ 12:20 by USHA Marcos) Asthma Stable and controlled - occ wheezing with weather changes CKD (chronic kidney disease) Stable - was taken off Lasix and HCTZ - slowly improving GERD (gastroesophageal reflux disease) Well controlled and stable with OTC Omeprazole Hx of stroke without residual deficits 2015 - denies residual effects- no longer needs to follow with neuro- follows only with PCP Hyperlipidemia Hypertension Hypothyroidism s/p iodine radiation treatment secondary to hyperthyroidism Leg edema Mild/stable since d/c of diuretics Morbid obesity Osteoarthritis Right knee DJD Sleep apnea no CPAP (non-compliant, "cannot tolerate") Surgical History (Updated 12/14/19 @ 10:29 by Eyal Mg MD) Family history of reaction to anesthesia Mother/father "slow to wake"- no prolonged intubation or ICU stay History of arthroscopy R/L knee x 2 History of arthroscopy of shoulder left History of back surgery fracture back and has cage and hardware History of bilateral knee replacement History of carpal tunnel surgery both hands and left elbow release of nerve History of endoscopic sinus surgery History of left knee replacement Left TKA: 12/09/18: SAB x 3 attempts + PNB at [facility] History of loop recorder placed 07/23/17 after CVA loooking for arrhythmia , [employer]- still in place History of tonsillectomy PONV (postoperative nausea and vomiting) Social History Preferred Language: Bahamian Communication Ability: Effective Charcoal Kiln Burner Required: No Beliefs That Will Affect Care: None marital status: Current Living Situation: Spouse and Family Other Information That Helps Us Care for You: No Feels Safe at Home: Yes Safety Concerns: Feels Safe At This Time Smoking Status: Former smoker Tobacco Type: cigarettes ; Do You Dip or Chew Tobacco: No ; Smoking End Date: 1989 ; Second Hand Exposure: No ; Tobacco Cessation Education Requested by Patient: No Hx Alcohol Use: No Hx Substance Use: No Review of Systems Constitutional: + fever (subjective ) and + chills (subjective) Eyes: no worsening vision Respiratory: no cough, no chest congestion, no dyspnea, no dyspnea on exertion and no pain on inspiration Cardiovascular: no chest pain, no chest pain with activity, no radiating jaw, neck or arm pain, no dyspnea, no dyspnea at rest, no dyspnea on exertion, no palpitations and no lightheadedness Gastrointestinal: no abdominal pain, no nausea, no vomiting, no constipation and no diarrhea/loose stools Genitourinary: no dysuria Musculoskeletal: + joint pain (R knee pain ) Integumentary: + lesions (R knee ) Physical Exam Constitutional: well developed, well nourished and + overweight Eyes: PERRL, conjunctivae normal, anicteric sclerae ENMT: external ear and nose normal, oropharynx normal Respiratory: normal respiratory effort, lungs clear to auscultation Cardiovascular: RRR, no murmur, no edema Heart Sounds: normal S1 and normal S2 Vessels: no JVD and no carotid bruit Chest (Breasts): Chest: normal inspection of chest Gastrointestinal (Abdomen): normal bowel sounds, soft, nontender, no hepatosplenomegaly Psychiatric: A+Ox3, euthymic affect Results & Data ([facility]) Vital Signs (Past 12 Hours) Vital Signs Temp Pulse Resp BP Pulse Ox 04/02/20 07:51 36.9 C 72 16 146/77 H 92 PG Care Time/CCT Total # of Minutes Spent Total Time Spent with Patient: Total time spent is greater than 50% in coordination of care (as documented) at patient's floor/unit and/or counseling patient: Coding Level of Care Code 31573 Inpt Consult Level 4 Diagnoses HTN (hypertension) I10 Hypothyroidism E03.9 History of bilateral knee replacement Z96.653 Cellulitis L03.90 Encounter for pre-operative examination Z01.818 Right knee DJD M17.11 Hyperlipidemia E78.5 Resident Activity Tracking Resident Involvement: Resident Care Provided Care Provided: Adult Hospital Medicine
[2020-04-02] MEDS ORDERED: BUPIVACAINE 0.5 % 5 MG/1 ML PF 10ML VIAL ONE (14:23)
[2020-04-02] MEDS ORDERED: VANCOMYCIN HCL 1000MG/20ML VIAL ONE (14:25)
[2020-04-02] MEDS ORDERED: BACITRACIN INJ 50,000 UNIT VIAL ONE (14:26)
[2020-04-02] MEDS ORDERED: MIDAZOLAM HCL 1 MG/ML 2ML VIAL ONE ×2 (14:40→14:45)
[2020-04-02] MEDS ORDERED: fentaNYL citrate 100 MCG/2 ML VIAL ONE ×4 (14:40→16:45)
[2020-04-02] MEDS ORDERED: PROPOFOL IV EMULSION 10 MG/ML 20 ML VIAL IV ONE ×2 (14:44→17:31)
[2020-04-02] MEDS ORDERED: LIDOCAINE HCL 2% 2 ML VIAL/AMP(20MG/ML) INFIL ONE (14:44)
[2020-04-02] MEDS ORDERED: ONDANSETRON INJ 2 MG/ML 2 ML VIAL ONE (14:44)
--- NOTE | 2020-04-02 14:45 | Anesthesiology Consultation ---
Date of Service April 02, 2020 Assessment & Plan (1) Encounter for pre-operative examination: Chart Review Chart Review: Acceptable Risk for Surgery and Patient NOT seen in Pre Admission Testing Consults Requested none ASA ASA3 Proposed Anesthesia Anesthesia Type: General Risk / Benefits Reviewed With: PT / POA / Parent / Guardian, Accepts Plan and In formed Consent Obtained History Surgery Operation Date: 04/02/20 07:00 Proposed Procedures p Right Knee Incision and Drainage, Possible Right Knee Poly Exchange versus Right KNee Removal with Antibiotic Spacer Placement - Eyal Mg MD s Total Knee Revision - Eyal Mg MD Height/Weight Height: 6 ft 4 in Weight: 198.6 kg Allergies Allergy/AdvReac Type Severity Reaction Status Date / Time lisinopril Allergy Unknown lip swelled Verified 11/28/19 10:21 Penicillins Allergy Unknown unsure as Verified 11/28/19 10:21 a child Medications Home Medications Medication Instructions Recorded Confirmed Last Taken Eliquis 5 mg PO BID 10/24/18 03/31/20 03/31/20 07:00 albuterol sulfate 2.5 mg INHALATION QID PRN 10/24/18 03/31/20 11/27/19 22:00 albuterol sulfate [Ventolin HFA] 2 puff INHALATION QID PRN 10/24/18 03/31/20 11/28/19 09:00 atorvastatin 40 mg PO QAM 10/24/18 03/31/20 03/31/20 07:00 duloxetine 30 mg PO HS 10/24/18 03/31/20 03/31/20 07:00 fluticasone propionate [Flonase 2 spray INTRANASAL UD PRN 10/24/18 03/31/20 11/27/19 22:00 Allergy Relief] levothyroxine 212.5 mcg PO QAM 10/24/18 04/01/20 03/31/20 06:00 metoprolol succinate 100 mg PO QAM 10/24/18 03/31/20 03/31/20 07:00 montelukast [Singulair] 10 mg PO QAM 10/24/18 03/31/20 03/31/20 07:00 potassium chloride 20 meq PO QID 10/24/18 03/31/20 03/31/20 15:00 amlodipine 2.5 mg PO QAM 0103/31/20 03/31/20 07:00 omeprazole 20 mg PO QAM 11/10/19 03/31/20 03/31/20 07:00 miscellaneous medical supply #1 ea 03/08/20 03/08/20 Unknown Active Medications Generic Name Dose Route Start Last Admin Trade Name Freq PRN Reason Stop Dose Admin Acetaminophen 1,000 mg 03/31/20 22:01 04/01/20 00:13 Ofirmev IV 04/03/20 22:00 1,000 mg Q8H PRN Administration Pain Amlodipine Besylate 2.5 mg 04/02/20 09:00 04/02/20 10:02 Norvasc PO 05/02/20 08:59 Not Given QAM RASHEED Duloxetine HCl 30 mg 04/01/20 21:00 04/01/20 20:10 Cymbalta PO 05/01/20 20:59 30 mg HS RASHEED Administration Cefepime HCl 2,000 mg/ Syringe 20 mls @ 5.5 mls/min 04/01/20 00:00 04/02/20 08:00 IV 04/08/20 00:00 5.5 mls/min Q8H RASHEED Administration Protocol Sodium Chloride 1,000 mls @ 125 mls/hr 03/31/20 22:30 04/02/20 14:03 Nss 1000ml IV 04/30/20 22:29 0 mls/hr .Q8H RASHEED Infusion Daptomycin 800 mg/ Syringe 16 mls @ 0 mls/min 04/01/20 16:00 04/01/20 15:41 IV 04/08/20 15:59 4 mls/min Q24H RASHEED Administration Protocol Levothyroxine Sodium 200 mcg 04/02/20 06:30 04/02/20 10:14 Synthroid PO 05/02/20 06:29 200 mcg DAILYBB RASHEED Administration Levothyroxine Sodium 12.5 mcg 04/02/20 06:30 04/02/20 05:40 Synthroid PO 05/02/20 06:29 Not Given DAILYBB RASHEED Metoprolol Succinate 100 mg 04/02/20 09:00 04/02/20 10:13 Toprol Xl PO 05/02/20 08:59 100 mg QAM RASHEED Administration Montelukast Sodium 10 mg 04/02/20 09:00 04/02/20 10:02 Singulair PO 05/02/20 08:59 Not Given QAM RASHEED Pantoprazole Sodium 40 mg 04/02/20 09:00 04/02/20 10:02 Protonix PO 05/02/20 08:59 Not Given QAM RASHEED Protocol Potassium Chloride 20 meq 04/01/20 17:00 04/02/20 12:51 Klor-Con M20 PO 05/01/20 16:59 Not Given QID RASHEED NPO Date Last Intake of Fluids: 04/01/20 Time Last Intake of Fluids: 23:30 Date Last Intake of Solids: 04/01/20 Time Last Intake of Solids: 23:30 Past Medical History Medical History Asthma Stable and controlled - occ wheezing with weather changes CKD (chronic kidney disease) Stable - was taken off Lasix and HCTZ - slowly improving GERD (gastroesophageal reflux disease) Well controlled and stable with OTC Omeprazole Hx of stroke without residual deficits 2015 - denies residual effects- no longer needs to follow with neuro- follows only with PCP Hyperlipidemia Hypertension Hypothyroidism s/p iodine radiation treatment secondary to hyperthyroidism Leg edema Mild/stable since d/c of diuretics Morbid obesity Osteoarthritis Right knee DJD Sleep apnea no CPAP (non-compliant, "cannot tolerate") Exercise / Class Metabolic Activity III < 4 Walking/Shop/Light housework Past Surgical History Surgical History Family history of reaction to anesthesia Mother/father "slow to wake"- no prolonged intubation or ICU stay History of arthroscopy R/L knee x 2 History of arthroscopy of shoulder left History of back surgery fracture back and has cage and hardware History of bilateral knee replacement History of carpal tunnel surgery both hands and left elbow release of nerve History of endoscopic sinus surgery History of left knee replacement Left TKA: 12/09/18: SAB x 3 attempts + PNB at [facility] History of loop recorder placed 07/23/17 after CVA loooking for arrhythmia , [employer]- still in place History of tonsillectomy PONV (postoperative nausea and vomiting) Past Anesthesia History No Hx of Anesthesia Complications and No Family Hx of Anesthesia Complications History of PONV No Hx of Motion Sickness and History of PONV Social History Smoking Status: Former smoker tobacco type: cigarettes Do You Dip or Chew Tobacco: No Smoking End Date: 1989 Hx Alcohol Use: No Hx Substance Use: No substance use type: does not use Physical Exam Vital Signs Last Vital Signs Temp 99.0 F 04/02/20 14:20 Pulse 85 04/02/20 14:20 Resp 24 04/02/20 14:20 BP 157/91 H 04/02/20 14:20 Pulse Ox 97 04/02/20 14:20 ENMT Mouth: no dentition abnormality Thyromental Distance: > or= 3.5 Finger Breadths Mallampati Class: II Neck normal visual inspection Respiratory normal respiratory effort Auscultation: lungs clear to auscultation bilaterally Cardiovascular Rate/Rhythm: regular rate and regular rhythm Testing Laboratory Results 04/02/20 05:49 04/02/20 05:49 Hemoglobin A1c 6.3 % (4.5-5.6) H 03/31/20 22:30 Blood Type O Negative 04/01/20 21:29 Antibody Screen NEGATIVE 04/01/20 21:29 04/01/20 16:50 Gram Stain - Final Knee,Right Wound Culture - Preliminary Staphylococcus aureus 04/01/20 16:50 Gram Stain - Final Knee,Right Aerobic and Anaerobic Culture - Preliminary Staphylococcus aureus
[2020-04-02] MEDS ORDERED: SCOPOLAMINE 1.5 MG TDSY TD ONE ×2 (14:58→15:00)
[2020-04-02] MEDS ORDERED: fentaNYL citrate 100 MCG/2 ML VIAL IV PRN (15:01)
[2020-04-02] MEDS ORDERED: HYDROmorphone INJ 1 MG/ML SYRINGE IV PRN (15:01)
[2020-04-02] MEDS ORDERED: ATROPINE SULFATE 0.1 MG/ML 10ML SYR IV PRN (15:01)
[2020-04-02] MEDS ORDERED: ONDANSETRON INJ 2 MG/ML 2 ML VIAL IV PRN (15:01)
[2020-04-02] MEDS ORDERED: ePHEDrine sulfate 50 MG/ML AMP IV PRN (15:01)
--- NOTE | 2020-04-02 15:11 | History & Physical Bridge Note ---
Date of Service April 02, 2020 History & Physical Bridge Note I have examined the patient, reviewed the History & Physical and in the interval since the performance of the History & Physical I have noted the following changes of clinical significance: no changes noted
--- NOTE | 2020-04-02 15:42 | Progress Notes ---
DATE: 04/02/2020 SUBJECTIVE: A 50-year-old gentleman 4 months out from right total knee replacement with a several day history of increased swelling, redness and purulent drainage from his right knee. No interval change in symptoms. He feels a little bit better since it has been decompressed and aspirated. Denies any new complaints. OBJECTIVE: VITAL SIGNS: Temperature 37.2. Vital signs stable. GENERAL: Shows a very large middle-aged male. EXTREMITIES: Examination of the right leg reveals some moderate to diffusely swollen right leg with cellulitic changes around the incision site. He has got fluid in the subcutaneous tissues. He continues to have drainage anteriorly. His knee moves pretty well with full extension to about 90 degrees of flexion. There is no instability. LABORATORY DATA: White cell count 5.70. Hemoglobin 10.7. Hematocrit 33.9. Electrolytes are stable. Creatinine is actually improved some at 1.55. Prepatellar bursa joint aspirate revealed 49,000 white cells with 99% polys. Gram stain showing Staph aureus. ASSESSMENT: A 50-year-old gentleman 4 months out from a right total knee replacement with acute infection at least of his prepatellar bursa area. I think it is highly likely this involves the joint but hard to say for certain on observation. This is going to require a formal irrigation and debridement. We are going to proceed with that today. PLAN: We are going to take him to the operating room and do an irrigation and debridement of his prepatellar bursa. It is likely that we are going to have to open his knee joint up and at least do a poly exchange. We talked about resection arthroplasty as well and the patient is strongly desiring not to do that. I told him that gives him his best chance if there is joint infection and he is aware of that and would like to proceed just with a poly exchange if possible and some antibiotics for a period of time. The risks and benefits of this procedure were explained in depth to the patient and include persistent infection and need for further surgery. He wants to proceed along this course. We will plan on DVT prophylaxis and get him back on his anticoagulation afterwards. He will continue with TEDs and SCDs for now.
--- NOTE | 2020-04-02 15:57 | Electrocardiogram Report ---
Test Reason : Blood Pressure : / mmHG Vent. Rate : 090 BPM Atrial Rate : 090 BPM P-R Int : 146 ms QRS Dur : 096 ms QT Int : 362 ms P-R-T Axes : -03 025 009 degrees QTc Int : 442 ms Sinus rhythm with sinus arrhythmia with frequent , and consecutive Premature ventricular complexes Abnormal ECG When compared with ECG of 16-NOV-2019 11:54, Premature ventricular complexes are now Present TN interval has decreased Confirmed by Ovidio Grace ([id number]) on 04/02/2020 3:57:03 PM Referred By: Eliana Huston Confirmed By:Ovidio Grace
[2020-04-02] MEDS ORDERED: ROCURONIUM BROMIDE 10 MG/ML 5 ML VIAL IV ONE (16:25)
[2020-04-02] MEDS ORDERED: ALBUTEROL HFA INHALER 8.5 GM ONE (16:25)
[2020-04-02] MEDS ORDERED: SUCCINYLCHOLINE CHLORIDE 20 MG/ML 10 ML VIAL IV ONE (16:25)
[2020-04-02] MEDS ORDERED: GLYCOPYRROLATE 0.2 MG/ML VIAL ONE (16:49)
[2020-04-02] MEDS ORDERED: NEOSTIGMINE METHYLSULFATE 5 MG/5 ML SYR ONE (16:49)
[2020-04-02] MEDS ORDERED: DAKIN'S SOLN 0.5% FULL STRENGTH 473ML BTL EXT ONE (17:04)
[2020-04-02] MEDS ORDERED: HYDROmorphone INJ 2 MG/ML SYR/VIAL ONE (17:13)
[2020-04-02] MEDS ORDERED: DAKIN'S SOLN 0.5% FULL STRENGTH 473ML BTL EXT SCH (17:15)
[2020-04-02] MEDS ORDERED: EPINEPHrine INJ 1 MG/ML AMP ONE (17:29)
[2020-04-02] MEDS ORDERED: BUPIVACAINE 0.5 % 5 MG/1 ML MPF 30ML VIAL ONE (17:29)
[2020-04-02] MEDS ORDERED: CEFAZOLIN 250 MG/ML 1 GM VIAL ONE (18:05)
--- NOTE | 2020-04-02 18:38 | Post Operative Brief Note ---
PG Immediate Post Op with CF Date of Surgery April 02, 2020 Pre & Post Diagnosis Operation Date: 04/02/20 07:00 Pre-Op Diagnosis: Infected Right Knee with prepatella bursa infection, possible knee joint infection Post-Op Diagnosis: INFECTED RIGHT KNEE Arthroplasty I identified the patient and participated in the time-out.: Yes Procedure Operation Date: 04/02/20 07:00 Actual Procedures p Right Knee Incision and Drainage, Right Knee Poly Exchange (Right) - Eyal Mg MD Surgeon Eyal Mg MD Harvesting Supervisor Josefa, PAC Estimated Blood Loss 300 Findings Consistent with Post-Op Diagnosis Fluids 2000 cc Specimens Specimen Description: Right knee joint fluid - culture and gram stain Drains Hemovac Drain (x 2) Anesthesia Type General Complications none Disposition Accompanied Patient To Recovery: No Disposition: Recovery Room
--- NOTE | 2020-04-02 19:14 | Operative Report ---
Post Operative Report Pre & Post Diagnosis Operation Date: 04/02/20 07:00 Pre-Op Diagnosis: Right knee infected prepatellar bursa and possible total knee infection. Post-Op Diagnosis: Infected right total knee replacement I identified the patient and participated in the time-out.: Yes Procedure Operation Date: 04/02/20 07:00 Actual Procedures p Right Knee Incision and Drainage, Right Knee Poly Exchange (Right) - Eyal Mg MD Surgeon Eyal Mg MD Door Frame Builder Josefa, PAC Estimated Blood Loss 300 Findings Consistent with Post-Op Diagnosis Operative findings revealed extensive infection throughout his knee. He had a fairly large rent in the quad mechanism just at the superior medial border of the patella with fluid draining from the knee joint into the prepatellar bursa. His components were well fixed. Fluids 2000 cc. Specimens Right knee joint fluid sent for Gram stain and culture Drains Hemovac drains x2: 1 in the knee joint and 1 in the prepatellar bursa. Complications none Disposition Accompanied Patient To Recovery: No Disposition: Recovery Room Indications Patient is a 50-year-old obese a very large gentleman who is now 4 months out from a right total knee replacement. He had fairly uneventful recovery and then 3 or 4 days ago developed increased pain discomfort swelling redness in his knee. He was seen in [place] [facility] and then transferred to our institution for care. Since admission he developed drainage from the anterior aspect of his knee. He had an obvious infection. The patient indicated for surgical intervention. Description of Procedure Patient is taken to the operating room identified and placed on the operating table supine position. All contact areas were properly padded. The patient is been receiving preoperative antibiotics. A general anesthetic was implemented by the anesthesia team. We had to wait 20 minutes as per the COVID precautions. A right thigh turn was then placed. I then scrubbed the right leg with Hibiclens and then prepped with ChloraPrep and draped in usual sterile fashion. The right leg was elevated but not exsanguinated. The tourniquet was placed at 350 mmHg. An anterior approach to the right knee was then performed to the previous incision. I did ellipse out his sinus tract completely. I immediately entered the large fluid collection in his prepatellar bursa which extended the entire way up and down his incision site. A full-thickness flap was developed medially and laterally. There was a fairly large rent in the extensor mechanism at the superior medial border of the patella with this infection clearly tracking down into the knee joint. A medial parapatellar arthrotomy incision was made. Some subperiosteal dissection was carried medially. We did a complete synovectomy of the suprapatellar pouch medial lateral gutters. I also used a curette and a rondure to debride all all the necrotic tissue in the prepatellar bursa area as well as around the knee joint. I then remove the polyethylene. We debrided the back of the knee as well. I then irrigated the knee extensively with 3 L of pulsatile lavage solution. I then used a sterile toothbrush described the implants. I then irrigated with full-strength Dakin solution and let this sit in the wound for 3 minutes. We then irrigated this out with 3 L of pulsatile lavage. I then irrigated the knee with a diluted Betadine solution. I also scrubbed the components again with the sterile toothbrush. I then irrigated this out with 3 L of pulsatile lavage solution. After doing this we placed a new drape in got new surgical tools and changed our gloves. I then irrigated the knee again with 3 L of pulsatile lavage solution with antibiotic in it. I then placed a new 10 mm Po stabilized polyethylene insert. The tourniquet was then let down for turn time 70 minutes. Hemostasis assured use electrocautery. I then placed 2 g of vancomycin powder in the wound. Three quarters of this was placed deep in the knee joint and one quarter in the prepatellar bursa area. The extensor mechanism then closed with #1 PDS suture in a [id number] fashion. The extensor mechanism was checked and found to be intact. The skin was then closed with a combination of #1 and #2 Prolene sutures in a simple fashion along with 2-0 nylon suture in a simple fashion. Leg was then cleaned dried a sterile dressing composed of Xeroform, 4 x 4's, sterile cast padding and an Ashutosh bandage were applied. The patient was then transferred to the transport cart. He was brought out of general anesthesia and the left in the OR for 20 minutes as per COVID precautions. He was then transferred to the recovery room in stable condition. Patient tolerated procedure well there are no complications. I attest to the content of the Intraoperative Record and any orders documented therein. Any exceptions are noted below.
--- NOTE | 2020-04-02 20:02 | Anesthesiology Progress Note ---
Date of Service April 02, 2020 Anesthesia Post Procedure Vital Signs Vital Signs: Temp Pulse Pulse Resp BP Pulse Ox 04/02/20 19:45 86 15 118/86 95 04/02/20 19:35 84 17 131/83 95 04/02/20 19:25 98.6 F 83 22 131/93 97 04/02/20 19:15 88 23 137/92 94 04/02/20 19:05 87 20 143/100 H 98 04/02/20 18:57 98.1 F 89 23 167/111 H 94 04/02/20 14:20 99.0 F 85 24 157/91 H 97 04/02/20 07:51 98.4 F 72 16 146/77 H 92 04/01/20 23:15 98.6 F 101 H 16 145/81 H 95 Pain Intensity Right Knee: Pain Intensity: 2 Transfer of Care Handoff Completed per policy Notes Mental Status: alert / awake / arousable and participated in evaluation Patient Amnestic to Procedure: Yes Nausea / Vomiting: adequately controlled Pain: adequately controlled Airway Patency, RR, SpO2: stable & adequate BP & HR: stable & adequate Hydration State: stable & adequate Anesthetic Complications: no major complications apparent and Pt Satisfied with anesthetic care
[2020-04-02] MEDS ORDERED: METOCLOPRAMIDE HCL INJ 5 MG/ML 2 ML VIAL IV PRN (20:07)
[2020-04-02] MEDS ORDERED: ALBUTEROL HFA 8 GM INHALER INH PRN (20:07)
[2020-04-02] MEDS ORDERED: ALBUTEROL 0.5% NEB SOLN 2.5 MG/0.5 ML VIAL INH PRN (20:07)
[2020-04-02] MEDS ORDERED: MAGNESIUM HYDROXIDE SUSP 30 ML UDC PO PRN (20:07)
[2020-04-02] MEDS ORDERED: HYDROmorphone HCL 2 MG TAB PO PRN (20:07)
[2020-04-02] MEDS ORDERED: bisacodyL 10 MG SUPP PR PRN (20:07)
[2020-04-02] MEDS ORDERED: APPL SCH (20:07)
[2020-04-02] MEDS ORDERED: [UNRECOGNIZED DRUG - OTHER] SCH (20:07)
[2020-04-02] MEDS ORDERED: NALOXONE HCL 0.4 MG/1 ML VIAL/CARP IV PRN (20:07)
[2020-04-02] MEDS ORDERED: FLUTICASONE PROPIONATE NA SPR 16 GM BTL NAE PRN (20:07)
[2020-04-02] MEDS: CHECK SCOPOLAMINE PATCH PLACEMENT SCH ×2 (20:32→23:52)
[2020-04-02] MEDS ORDERED: SODIUM CHLORIDE 0.9% 1000ML 1,000 ML IV SCH (21:00)
[2020-04-02] MEDS: DAPTOmycin 800 MG in SYRINGE 0 ML IV SCH (21:43)
[2020-04-02] MEDS: DULOXETINE HCL 30 MG CAP PO SCH (21:45)
[2020-04-02] MEDS: SENNA 8.6 MG TAB PO SCH (21:46)
[2020-04-02] MEDS: rifAMPin 300 MG CAPSULE PO SCH (21:46)
[2020-04-02] MEDS: DOCUSATE SODIUM 100 MG CAP PO SCH (21:46)
[2020-04-02] MEDS: ONDANSETRON INJ 2 MG/ML 2 ML VIAL IV PRN (22:39)
[2020-04-02] MEDS: ACETAMINOPHEN 1000 MG/100 ML IV IV PRN (23:49)
[2020-04-03] MEDS: SODIUM CHLORIDE 0.9% 1000ML 1,000 ML IV SCH (03:15)
[2020-04-03] MEDS: CEFEPIME 2,000 MG in SYRINGE 7.5 ML IV SCH ×3 (05:35→21:34)
[2020-04-03] MEDS: LEVOTHYROXINE SODIUM 200 MCG TABLET PO SCH (05:35)
[2020-04-03] MEDS: LEVOTHYROXINE SODIUM 25 MCG TABLET PO SCH (05:36)
--- NOTE | 2020-04-03 08:24 | Orthopedic Progress Note ---
Date of Service April 03, 2020 Assessment & Plan (1) Infection of total right knee replacement: His pain is reasonably controlled this morning. We will leave his dressing and drains in place today. He had some vomiting postoperatively but that is resolved. Will need IV antibiotics for 6 weeks so we will need set up with a PICC line. Subjective 50-year-old male postop day 1 from right knee I&D, polyethylene exchange for a infected total knee. He is doing okay this morning. He had some vomiting yesterday postoperatively feels he just ate too soon. Pain is reasonably controlled at this point. No chest pain or shortness of breath. No other complaints. Physical Exam Physical Exam: He is alert and oriented. No distress. Dressing is intact to the right lower extremity. Drains are in place. He is able dorsiflex plantarflex appropriately. Neurovascular intact. Results & Data ([facility]) Vital Signs (Past 12 Hours) Vital Signs Temp Pulse Pulse Resp BP Pulse Ox 04/03/20 07:43 37.0 C 87 18 113/67 97 04/03/20 03:35 37.0 C 79 18 118/71 96 04/02/20 22:51 36.9 C 80 18 151/77 H 95 04/02/20 22:38 84 18 98 04/02/20 22:24 36.8 C 88 19 144/79 H 90 04/02/20 21:13 36.8 C 85 18 126/78 97 04/02/20 20:35 36.7 C 78 17 141/81 H 98 PG Care Time/CCT Total # of Minutes Spent Total Time Spent with Patient: Total time spent is greater than 50% in coordination of care (as documented) at patient's floor/unit and/or counseling patient: Coding Level of Care Code None Diagnoses Infection of total right knee replacement T84.53XA
[2020-04-03] MEDS: CHECK SCOPOLAMINE PATCH PLACEMENT SCH ×2 (08:41→16:24)
[2020-04-03] MEDS: PANTOprazole 40 MG TAB PO SCH (08:56)
[2020-04-03] MEDS: METOPROLOL SUCC 50MG EXT REL TAB PO SCH (08:56)
[2020-04-03] MEDS: AMLODIPINE BESYLATE 5 MG TAB PO SCH (08:56)
[2020-04-03] MEDS: DOCUSATE SODIUM 100 MG CAP PO SCH ×2 (09:01→20:09)
[2020-04-03] MEDS: MONTELUKAST SODIUM 10 MG TABLET PO SCH (09:01)
[2020-04-03] MEDS: rifAMPin 300 MG CAPSULE PO SCH ×2 (09:01→20:09)
[2020-04-03] MEDS: POTASSIUM CHLORIDE 20 MEQ TABCR PO SCH ×4 (09:01→20:09)
[2020-04-03] MEDS: MULTIVITAMIN TAB PO SCH (09:01)
[2020-04-03] MEDS ORDERED: LACTATED RINGER'S 1,000 ML IV SCH (09:15)
[2020-04-03 09:42] LABS: Basophils # (auto) 0.04 K/uL (0-0.2); Basophils % (auto) 0.5 %; Eosinophils # (auto) 0.46 K/uL (0-0.5); Eosinophils % (auto) 5.5 %; Hematocrit (blood only) 32.1 % (42-52); Immature Granulocytes # (auto) 0.15 K/uL (0.00-0.02); Immature Granulocytes % (auto) 1.8 %; Lymphocytes # (auto) 0.71 K/uL (1.2-3.4); Lymphocytes % (auto) 8.5 %; Mean Corpuscular Hemoglobin 27.1 pg (25-34); Mean Corpuscular Hgb Conc 31.2 g/dL (32-36); Mean Platelet Volume 9.7 fL (7.4-10.4); Monocytes % (auto) 8.4 %; Neutrophils # (auto) 6.25 K/uL (1.4-6.5); Neutrophils % (auto) 75.3 %; Platelet Count 265 K/uL (130-400); RDW Coefficient of Variation 15.6 % (11.5-14.5); RDW Standard Deviation 50.2 fL (36.4-46.3); Red Blood Count 3.69 M/uL (4.7-6.1); White Blood Count 8.31 K/uL (4.8-10.8)
[2020-04-03] MEDS: ATORVASTATIN 40 MG TAB PO SCH (09:43)
[2020-04-03 10:16] LABS: BUN Creatinine Ratio 11.5 (10-20); Calcium 8.5 mg/dl (8.5-10.1); Creatinine Clr Calc Pharmacy 110.3 ml/min; Est GFR (African American) 62.5
[2020-04-03] MEDS: ACETAMINOPHEN 1000 MG/100 ML IV IV PRN (10:46)
--- NOTE | 2020-04-03 12:47 | Hospitalist Progress Note ---
Date of Service April 03, 2020 Assessment & Plan (1) Septic joint of right knee joint: S/p TKA with Dr. Mg 04/02 -Recent Hx of R total knee arthroplasty on 11/28/[address] Mg - Blood cultures from [place] are growing staph, sensitivities not resulted yet. Repeat cultures pending. Wound cultures growing MSSA -Continue daptomycin and cefepime IV until bc result -PRN IV tylenol 1000mg q8h ordered for pain -Will need to start physical therapy when ok with surgery (2) Bacteremia: As above, repeat cultures pending, continue daptomycin and cefepime until surgical cultures and blood cultures result (3) FABBY (acute kidney injury): -Pt has baseline Cr of 1.4 in Nov 2019. -Cr 2.13, now baseline -Pt states he has been using home torsemide daily to help with leg swelling -hold home torsemide and other nephrotoxic meds -NSS@125 mls (4) Asthma: -continue home albuterol inhaler prn. Patient reports asthma is mild and well controlled, seasonal -hold home singulair 10mg (5) HTN (hypertension): Continue home amlodipine 2.5mg daily, metoprolol succinate 100mg daily (6) Hyperlipidemia: hold home atorvastatin 40mg while on daptomcyin (7) GERD (gastroesophageal reflux disease): continue home ppi (8) Hx of stroke without residual deficits: -held home Eliquis 5mg BID for surgery, patient on Rifampin so will need to give enoxaparin while continuing this therapy. Per surgery, dvt proph dose for the next two days and then full dose. Pharmacy discussed with Dr. Almaguer who recommended 0.5 mg/kg given patient's size and remoteness of stroke. (9) Hypothyroidism: Continue home levothyroxine (10) DVT prophylaxis: enoxaparin, SCDs Admission and Anticipated Discharge Date Admission Date: March 31, 2020 Subjective Mr. Paige's pain is tolerable. He is no longer having aches or chills. He has no other complaints. ROS Constitutional: no chills, aches, sweats or fever Respiratory: no sob,cough, sputum, or wheezing Cardiac: no chest pain, palpitations, edema, orthopnea or lightheadedness GI: no abdominal pain, nausea, vomiting, diarrhea or constipation : no dysuria or hesitancy Extremities: no joint pain or weakness Skin: no rash All other systems reviewed and negative Physical Exam Physical Exam: General: no distress Eyes: normal inspection, PERLL Respiratory: chest non tender, clear to auscultation, normal breath sounds, no respiratory distress, no accessory muscle use Cardiac: regular rate and rhythm, no rub or gallop, no murmur, right lower extre mity edema GI/: active bowel sounds, no abd pain or tenderness, soft, non distended Extremities: normal range of motion, normal strength, non tender Neuro/Psych: alert and oriented x 3, normal mood and affect Skin: normal color, dry Results & Data Results & Data ([facility]) Vital Signs (Past 12 Hours) Vital Signs Temp Pulse Pulse Resp BP Pulse Ox 04/03/20 11:32 36.8 C 87 18 118/72 94 04/03/20 07:43 37.0 C 87 18 113/67 97 04/03/20 03:35 37.0 C 79 18 118/71 96 PG Care Time/CCT Total # of Minutes Spent Total Time Spent with Patient: Total time spent is greater than 50% in coordination of care (as documented) at patient's floor/unit and/or counseling patient: Coding Level of Care Code 09167 Subseq Hosp Care Lvl 3 Diagnoses Septic joint of right knee joint M00.9 Bacteremia R78.81 FABBY (acute kidney injury) N17.9 Asthma J45.909 HTN (hypertension) I10 Hyperlipidemia E78.5 GERD (gastroesophageal reflux disease) K21.9 Hx of stroke without residual deficits Z86.73 Hypothyroidism E03.9 DVT prophylaxis Z29.9
[2020-04-03] MEDS: DAPTOmycin 800 MG in SYRINGE 0 ML IV SCH (16:23)
[2020-04-03] MEDS ORDERED: LOVENOX TEACHING KIT ONE (17:57)
[2020-04-03] MEDS: ENOXAPARIN INJ 40 MG/0.4 ML SYR SQ SCH (20:08)
[2020-04-03] MEDS: SENNA 8.6 MG TAB PO SCH (20:09)
[2020-04-03] MEDS: DULOXETINE HCL 30 MG CAP PO SCH (20:09)
[2020-04-03] MEDS ORDERED: CALCIUM CARBONATE 500 MG CHEWABLE TAB PO PRN (21:45)
[2020-04-03] MEDS ORDERED: ALUMINUM/MAGNESIUM/SIMETH (MAALOX MAX) 30 ML UDC PO PRN (21:45)
[2020-04-04] MEDS: CHECK SCOPOLAMINE PATCH PLACEMENT SCH ×3 (00:51→17:01)
[2020-04-04] MEDS: ONDANSETRON INJ 2 MG/ML 2 ML VIAL IV PRN (00:51)
[2020-04-04] MEDS: LEVOTHYROXINE SODIUM 200 MCG TABLET PO SCH (05:45)
[2020-04-04] MEDS: LEVOTHYROXINE SODIUM 25 MCG TABLET PO SCH (05:45)
[2020-04-04] MEDS: CEFEPIME 2,000 MG in SYRINGE 7.5 ML IV SCH (05:46)
[2020-04-04] MEDS: METOPROLOL SUCC 50MG EXT REL TAB PO SCH (08:42)
[2020-04-04] MEDS: MONTELUKAST SODIUM 10 MG TABLET PO SCH (08:42)
[2020-04-04] MEDS: PANTOprazole 40 MG TAB PO SCH (08:42)
[2020-04-04] MEDS: POTASSIUM CHLORIDE 20 MEQ TABCR PO SCH ×3 (08:43→18:10)
[2020-04-04] MEDS: DOCUSATE SODIUM 100 MG CAP PO SCH ×2 (08:43→18:10)
[2020-04-04] MEDS: ATORVASTATIN 40 MG TAB PO SCH (08:43)
[2020-04-04] MEDS: rifAMPin 300 MG CAPSULE PO SCH ×2 (08:43→18:09)
[2020-04-04] MEDS: MULTIVITAMIN TAB PO SCH (08:43)
[2020-04-04] MEDS: AMLODIPINE BESYLATE 5 MG TAB PO SCH (08:43)
[2020-04-04] MEDS: ENOXAPARIN INJ 40 MG/0.4 ML SYR SQ SCH ×2 (08:44→18:11)
[2020-04-04 08:59] LABS: Hematocrit (blood only) 27.4 % (42-52); Hemoglobin 8.8 g/dL (14.0-18.0); Mean Corpuscular Hemoglobin 27.4 pg (25-34); Mean Corpuscular Hgb Conc 32.1 g/dL (32-36); Mean Corpuscular Volume 85.4 fL (80-100); Mean Platelet Volume 9.1 fL (7.4-10.4); Platelet Count 222 K/uL (130-400); RDW Coefficient of Variation 15.5 % (11.5-14.5); RDW Standard Deviation 49.1 fL (36.4-46.3); Red Blood Count 3.21 M/uL (4.7-6.1); White Blood Count 6.74 K/uL (4.8-10.8)
[2020-04-04 09:35] LABS: BUN Creatinine Ratio 10.2 (10-20); Calcium 8.7 mg/dl (8.5-10.1); Creatinine Clr Calc Pharmacy 129.4 ml/min; Est GFR (African American) 75.8; Est GFR (Non-African American) 65.4; Potassium 4.1 mmol/L (3.5-5.1)
[2020-04-04] MEDS: CEFAZOLIN 2000MG 2,000 MG/15 ML SYR IV SCH ×2 (10:51→18:09)
--- NOTE | 2020-04-04 15:54 | Discharge Summary ---
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 States he has had bilateral knee surgery with the Right being done a few months ago. Over the last 4 days, right knee has been progressively getting worse with the redness and swelling, to the point that it got tight today an he presented to the [place] ED. 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 States he has been using lasix quite a bit recently with little relief of the swelling. Denies any fevers, chills or night sweats. States his ambulation is limited. Pt admitted as a direct transfer from [facility] Principal Diagnosis Septic knee Discharge Exam Constitutional WD/WN, vitals as above Respiratory normal respiratory effort, lungs clear to auscultation Cardiovascular RRR, no murmur, no edema Gastrointestinal (Abdomen) normal bowel sounds, soft, nontender, no hepatosplenomegaly Musculoskeletal no cyanosis or clubbing, extremities motor strength 5/5 Skin no rashes, warm and dry Neurologic moves all extremities and awake Psychiatric A+Ox3, euthymic affect Discharge Data Allergies Allergy/AdvReac Type Severity Reaction Status Date / Time lisinopril Allergy Unknown lip swelled Verified 11/28/19 10:21 Penicillins Allergy Unknown unsure as Verified 11/28/19 10:21 a child Consultations 03/31/20 22:20 Consult Orthopedic Surgery Routine 04/02/20 10:03 Consult Cardiology Routine 04/02/20 20:07 Consult Case Management - Discharge Planning Routine Procedures Performed Operation Date: 04/02/20 07:00 Actual Procedures p Right Knee Incision and Drainage, (Right) - Eyal gM MD s Right Knee Poly Exchange (Right) - Eyal Mg MD Hospital Course (1) Septic joint of right knee joint: S/p I&D and polyexchange with Dr. Mg 04/02 -Recent Hx of R total knee arthroplasty on 11/28/[address] Mg - Blood cultures from [place] grew MSSA sensitive to Gentamicin, Oxacillin, Rifampin, Bactrim and Vancomyicn. Repeat blood cultures negative. Wound cultures growing MSSA. -Initially given daptomycin and cefepime IV - changed to cefazolin 2g q8h which patient will go home with. Patient will need 6 weeks of antibiotics per surgery. He will follow with [facility]y [facility] outpatient. Could consider changing to ceftriaxone after two weeks of cefazolin is completed to cover bacteremia for ease of dosing but will defer to infectious disease follow up. - Patient ambulating around the room independently with walker. Has walker at home (2) Bacteremia: As above (3) FABBY (acute kidney injury): -Pt has baseline Cr of 1.4 in Nov 2019. -Cr 2.13 on admission, now baseline -Pt states he has been using home torsemide daily to help with leg swelling -hold home torsemide and other nephrotoxic meds for now, follow up with pcp (4) Asthma: -continue home albuterol inhaler prn. Patient reports asthma is mild and well controlled, seasonal -home singulair 10mg (5) HTN (hypertension): Continue home amlodipine 2.5mg daily, metoprolol succinate 100mg daily (6) Hyperlipidemia: held home atorvastatin 40mg while taking daptomycin, can resume now that it is discontinued (7) GERD (gastroesophageal reflux disease): continue home ppi (8) Hx of stroke without residual deficits: -held home Eliquis 5mg BID for surgery, patient on Rifampin so will need to give enoxaparin while continuing this therapy. Per surgery, dvt proph dose (40 mg bid) for the next two days and then full dose. Pharmacy discussed with Dr. Almaguer who recommended 0.5 mg/kg bid (100 mg) given patient's size and remoteness of stroke. - enoxaparin teaching ordered (9) Hypothyroidism: Continue home levothyroxine (10) DVT prophylaxis: enoxaparin (11) Abnormal nuclear stress test: Consulted with cardiology pre surgery. They did not feel his scan represented high risk. Recommend continue metoprolol and follow up with pcp. Total Time Total Time Spent Total Time Spent (In Minutes): greater than 30 minutes Discharge Plan Discharge Items Reason For Visit: PRE PATELLAR BURSITIS Discharge Diagnosis: Infected Right Knee Replacement Activity: Per Instructions section Non-emergency contact: Primary Care Provider Call non-emergency contact if: you have any medication questions, your symptoms worsen, your pain is not controlled, you have a fever, your wound has increased drainage and your wound pain has increased Follow-up/Referrals: Dr. Dorian Cruz [Other] - 05/07/20 10:00 am (Please, follow up with Dr. Dorian Cruz (infectious disease specialist) on WednesdayMay 07 at 10:00 am. *The office is located at [address] [place] [address] in [place]. If you have any questions, call the office at [phone].) Eyal Mg MD [Physician] - (Orthopedic follow-up 2-3 weeks from surgery date) Anish Desouza D.O. [Primary Care Provider] - (Please, follow up with Dr. Anish Desouza in one week *A nurse from the office will call you with the appointment information. If you have any questions, call the office at [phone].) Diet: Heart Healthy Addtl Attending Provider Instructions: (1) Septic joint of right knee joint: Incision and drainage and hardware exchange with Dr. Mg 04/02 - Your blood cultures from [place] grew staph MSSA (not MRSA) Repeat blood cultures are negative. Your wound cultures also grew MSSA. You will need to continue on IV antibiotics as well as oral Rifampin for about 6 weeks. You will follow with a [facility] infectious disease specialist as above to help manage this treatment (2) Bacteremia: Blood cultures as discussed above. Again, the [facility] infectious disease specialist will help with this treatment. (3) FABBY (acute kidney injury): Resolved. Please hold off on taking any further torsemide until you have discussed this with your doctor. (4) Hx of stroke without residual deficits: - Eliquis interacts with rifampin so you will need to give yourself enoxaparin injections while taking rifampin. You will take one more dose of reduced dose enoxaparin (40 mg) tomorrow morning and then change to full dose (100 mg) twice per day after that until you finish your antibiotics and your doctor instructs you to restart Eliquis (5) Abnormal Stress test You were seen by Dr. Grace and Dr. Mariee from cardiology. They recommend that you continue with your beta khushboo and follow up with your primary care provider. ACTIVITY RECOMMENDATIONS: Physical Therapy: * You will go to physical therapy three times each week for four to six weeks after your surgery in order to regain your knee range of motion and to retrain your knee to work properly. * It is just as important to make sure you are getting your knee perfectly straight as it is to regain your knee bend. * Taking a pain pill an hour before therapy can help you have a more productive and comfortable therapy session. Home Exercise: * You were shown a series of exercises (heel props, heel slides, etc.) in the hospital. Do these exercises three to four times each day including the exercises you were shown in physical therapy. Walking: * Get up and walk several times each day. For the first four weeks, try not to stand or walk for more than one hour at a time. If you do stand or walk for more th an one hour, you will not hurt anything, but your knee and leg will likely swell. * As you feel comfortable, you may change from the walker or crutches to a cane and then to independent walking. "VERY IMPORTANT TO READ AND REVIEW" Pain: * The immediate post-operative period after knee replacement surgery is often quite painful. * You are given a prescription for pain medicine. You should take it, as directed, when you need it, especially before physical therapy and before going to bed. Pain that interferes with sleep is very common and can last several months. * You will likely need pain medicine for the first four to six weeks. It will not stop all of the pain. The pain will lessen and as you feel better, you may change to milder pain medicine such as Tylenol. * The most common side effects of pain medicine are nausea and constipation, so don't take more than you need. SPECIAL CARE INSTRUCTIONS: TEDs/Elastic Stockings: * The white elastic stockings help limit swelling and prevent blood clots from forming in your legs. The more you wear them, the more they work. * Wear them for six weeks after knee replacement surgery and four weeks after partial knee replacement. Prevention of Infection: * Take antibiotics one hour before any dental cleaning, dental work, urological procedure, gastrointestinal procedure or any invasive surgery in order to prevent your new joint from getting infected. * You may get the antibiotics from the doctor performing the procedure or you may call our office at before and we will call in a prescription to the pharmacy of your choice. Things to Watch For: * Drainage from the incision site that occurs more than one week after your surgery. * Severely increased knee/leg pain or swelling. * Increased redness at the incision site. * Fever above 102 degrees Fahrenheit. * Unusual chest pain or shortness of breath. * Unusual pain or burning with urination. Call [facility] at with any of the above problems or if you have any questions about your medicines or recovery. FOLLOW UP VISIT: Make an appointment to see your doctor for approximately two weeks after surgery for a progress check and staple removal by calling the office at . Pending Studies at Discharge: No Medications and DC Order Prescriptions: New rifampin 300 mg Capsule 300 mg PO BID 40 Days Qty: 80 RF: 0 enoxaparin 100 mg/mL Syringe 100 mg subcut BID Qty: 40 RF: 1 cefazolin in 0.9% sod chloride 2 gram/100 mL solution 2 gm IV Q8H Qty: 2400 RF: 0 enoxaparin 40 mg/0.4 mL syringe 40 mg SQ DAILY Qty: 0.4 RF: 0 Continued (DME) [facility] See Rx Instructions .ROUTE .MEDSUPPLY Qty: 1 RF: 0 omeprazole 20 mg Capsule,Delayed Release(Dr/Ec) 20 mg PO QAM RF: 0 amlodipine 2.5 mg Tablet 2.5 mg PO QAM RF: 0 atorvastatin 40 mg Tablet 40 mg PO QAM RF: 0 metoprolol succinate 100 mg Tablet Extended Release 24 Hr 100 mg PO QAM RF: 0 potassium chloride 10 mEq Tablet Extended Release 20 meq PO QID RF: 0 montelukast [Singulair] 10 mg Tablet 10 mg PO QAM RF: 0 albuterol sulfate [Ventolin HFA] 90 mcg/actuation Hfa Aerosol Inhaler 2 puff INHALATION QID PRN (Reason: sob) RF: 0 fluticasone propionate [Flonase Allergy Relief] 50 mcg/actuation [place],Suspension 2 spray INTRANASAL UD PRN (Reason: Nasal Congestion) RF: 0 albuterol sulfate 2.5 mg/0.5 mL Solution For Nebulization 2.5 mg INHALATION QID PRN (Reason: sob) RF: 0 levothyroxine 200 mcg Capsule 212.5 mcg PO QAM RF: 0 duloxetine 30 mg Capsule,Delayed Release(Dr/Ec) 30 mg PO HS RF: 0 Discontinued Eliquis 5 mg Tablet 5 mg PO BID RF: 0 Krames/Other Patient Handouts: Long-Term Complications of Diabetes, Healthy Meals for Diabetes, Diabetes: The Benefits of Exercise, A1C Admission Data Admit Date/Time: 03/31/20 20:54 Attending Provider: Leandro Almonte Admit Provider: Eliana Huston Primary Care Provider: Anish Desouza Other Providers: Eyal Mg ; Ovidio Grace Supervising Physician Co-Signing Physician Notes I supervised Aracely Ch NP on this patient's care. I examined the patient yesterday independently of her. I discussed the plan of care with her with the plan being as written in her note except for any following changes/exceptions: None. Doing well today. Would like to go home. Arranging for home IV antibiotics and will follow with [facility] and [facility] [place]. Coding Level of Care Code D/C Day Management >30 mins Diagnoses Septic joint of right knee joint M00.9 Bacteremia R78.81 FABBY (acute kidney injury) N17.9 Asthma J45.909 HTN (hypertension) I10 Hyperlipidemia E78.5 GERD (gastroesophageal reflux disease) K21.9 Hx of stroke without residual deficits Z86.73 Hypothyroidism E03.9 DVT prophylaxis Z29.9 Abnormal nuclear stress test R94.39
[2020-04-04] MEDS: SENNA 8.6 MG TAB PO SCH (18:11)
[2020-04-04] MEDS: DULOXETINE HCL 30 MG CAP PO SCH (18:11)
--- NOTE | 2020-04-04 21:28 | Progress Notes ---
DATE: 04/04/2020 SUBJECTIVE: A 50-year-old gentleman 2 days out from I and D and polyethylene exchange for a right knee replacement infection. He is doing pretty well. His pain has been controlled. No chest pain or shortness of breath. Not feeling dizzy or lightheaded. OBJECTIVE: VITAL SIGNS: Temperature 36.6. Vital signs stable. GENERAL: Shows a pleasant, middle-aged male. He is lying in bed, looks pretty comfortable. EXTREMITIES: Examination of the right leg reveals it to be well aligned. His incisions are well approximated. He does have some drainage from around the drain holes but no drainage elsewhere. He can do a straight leg raise. He is neurologically intact. LABORATORY DATA: Hemoglobin is 8.8. Hematocrit 27.4. Electrolytes are stable. CULTURE RESULTS: Culture results are showing methicillin-sensitive Staph aureus in all cultures. ASSESSMENT: A 50-year-old gentleman postop day 2 from I and D, synovectomy, polyethylene exchange for infected total knee replacement. PLAN: 1. DVT prophylaxis including thigh-high TEDs, SCDs, and he needs to be on Lovenox now that he is on rifampin. 2. Pain control, doing well with current pain regimen. 3. Infection -- he is currently on Ancef and rifampin. Rifampin a synergistic for a staph infections. We talked to the medicine doctors about NSAID versus ceftriaxone and they feel that the Ancef is a better drug for now. We will see how things go but it is a lot of dosing 3 times a day, but the patient is willing to do it. 4. Disposition: He is hoping to be discharged today. He has got his PICC line in place. We will plan on discharge as long as he is medically stable. He is going to be on Lovenox now since he is on rifampin and off Eliquis. I will see him back in 2 weeks.
[2020-04-05] MEDS ORDERED: ENOXAPARIN 100 MG/1ML SYR SQ SCH ×2 (09:00→21:00)
== END 2020-04-04 19:17 | disposition home or self-care (01) | DRG 560 ==
LOC: SUATTDRO 20:54 → 3N 20:54